=== PATIENT | female | born 1950 | race Caucasian/White ===

== ENCOUNTER → 2017-08-24 | Outpatient (CLI) | payer OTHER, MEDICARE ==
--- NOTE | 2017-08-24 13:09 | RAD ---
HISTORY: Bilateral hip pain Study: Two views of the hips Comparison: None Findings: A single frontal view of the pelvis demonstrates the pelvic ring to be intact. No evidence for acute cortical disruption or dislocation of the hip can be observed. Frog leg views of the hips male to d [facility] evidence for fracture. Degenerative changes of the visualized spine are demonstrated. Mild degenerative changes of the sacroiliac joints, each hip, and pubic symphysis are also noted. Portion s of the pelvis are obscured by overlying bowel content. Postoperative changes of the lumbar sacral s pine and pelvis are noted. A partially visualized stimulator device is seen projecting over the left lower quadrant. Impression: 1. Postoperative and degenerative changes as noted above. Reported By:
--- NOTE | 2017-08-24 13:23 | RAD ---
HISTORY: Knee pain Study: Four views of the right knee Comparison: None Findings: Images demonstrate medial and patellofemoral compartment space narrowing. Spurring of the tibial spin es is noted. Subchondral sclerosis is seen within the tibial plateau. Minimal spurring is noted along the posterior margin of the patella. No evidence of acute displaced fracture or dislocation is ident ified. IMPRESSION: 1. Degenerative changes as noted above. Reported By:
--- NOTE | 2017-08-24 13:23 | RAD ---
HISTORY: Knee pain Study: Four views of the left knee Comparison: None Findings: Images demonstrate medial and patellofemoral compartment space narrowing. Spurring of the tibial spin es is noted. Subchondral sclerosis is seen within the tibial plateau. Minimal spurring is noted along the posterior margin of the patella. No evidence of acute displaced fracture or dislocation is ident ified. IMPRESSION: 1. Degenerative changes as noted above. Reported By:
== END | disposition home or self-care (01) | DRG 556 ==
LOC: RAD 11:09
PROVIDERS: ATTEND Orthopaedic Surgery
DX: M25.551 Pain in right hip (principal); M25.552 Pain in left hip; M17.0 Bilateral primary osteoarthritis of knee; M16.0 Bilateral primary osteoarthritis of hip
CPT/HCPCS: 73521; 73564

== ENCOUNTER 2024-06-05 13:29 | Observation (INO) ==
--- NOTE | 2024-06-05 14:01 | DR.GENAD ---
HPI Time Seen Time Seen by Provider: 06/05/24 13:58 PCP Primary Care Physician: Dr Akbar Complaint/Symptoms Chief Complaint Doctors Comments: Patient complains of constipation for 4 to 5 days she is taken medical magnesia and Dulcolax with no relief. Chief Complaint:: Patient states she has been unable to have a BM in 4-5 days. She states she gave herself an enema yesterday with flatulence and liguid results only. She has pain generalized abdomen COVID-19 Coronavirus risk:travel/contact w/high risk person: No Has patient experienced Coronavirus symptoms: No Source History Provided: Patient Mode of Arrival Mode of Arrival: Wheelchair Timing Onset of Chief Complaint: 05/30/24 PMH PMH Past Medical History: Yes Past Medical History: Arthritis Past Medical History Comment: RA, Sundowners, IBS Past Surgical History: Yes Surgical History: Hysterectomy and Tonsillectomy Past Surgical History Comment: Back surgery with a stimulator Family History History of Family Medical Conditions: Yes Family Medical History: [place], Coronary Artery Disease and Sudden Cardiac Social History Does patient currently use any type of tobacco product: No Have you used tobacco products in the last 12 months: No Type of Tobacco Use: None Does any household member use tobacco: No Alcohol Use: None Do you use any recreational Drugs:: No Lives With: Spouse Lives Where: Home Travel Risk Coronavirus risk:travel/contact w/high risk person: No Has patient experienced Coronavirus symptoms: No Infectious screening In the last 2 months have you had wt loss of >10#?: NO Have you had fever, night sweats or hemotysis?: No Have you traveled outside the country in the last 6 months?: No Isolation: Standard ROS Review of Systems Constitutional: Other (Constipation with right lower quadrant abdominal pain) Eyes: No Symptoms Reported ENTM: No Symptoms Reported Respiratoy: No Symptoms Reported Cardiovascular: No Symptoms Reported Gastrointestinal/Abdominal: Abdominal Pain (rlq abdominal pain) and Constipation Genitourinary: No Symptoms Reported Neurological: No Symptoms Reported Musculoskeletal: No Symptoms Reported Integumentary: No Symptoms Reported Hematologic/Lymphatic: No Symptoms Reported Endocrine: No Symptoms Reported Psychiatric: No Symptoms Reported PE Vital Signs Vitals: Vital Signs Temperature 98 F Pulse Rate 63 Respiratory Rate 16 Blood Pressure 118/56 O2 Sat by Pulse Oximetry 94 General Limitations: No Limitations General Appearance: In Distress (mild distress) Head Head Exam: Normal Inspection, Atraumatic and Normocephalic Eyes Eye exam: Normal Appearance, PERRL and EOMI ENT ENT Exam: Normal Exam, Normal Oropharynx and Normal External Ear Exam External Ear Exam: Normal External Inspection TM/Canal Exam: Bilateral: Normal Nose Exam: Normal Nose Exam Mouth Exam: Normal Inspection Neck Neck Exam: Normal Inspection, Full ROM and Trachea Midline Chest Chest Inspection: Normal Inspection and Symmetric Chest Wall Rise Respiratory Respiratory Exam: Normal Lung Sounds Bilat Respiratory Exam: Bilateral: Clear to Auscultation Cardiovascular Cardiovascular Exam: Regular Rate and Normal Rhythm Abdominal Exam Abdominal Exam: Normal Inspection, Tenderness (rlq) and Hyperactive Bowel Sounds Abdominal Tenderness: RUQ Extremities Extremities Exam: Normal Inspection Back Back Exam: Normal Inspection and Full ROM Neurologic Neurological Exam: Alert, Oriented X3 and CN II-XII Intact Psychiatric Psychiatric Exam: Normal Affect MDM Differential Diagnosis Differential Diagnosis: uti,constipation ,bowel obstruction COURSE Treatment Treatment: Patient may relatively stable during ER visit. We did do some labs on this patient and they were all normal the metabolic panel was normal CBC was normal he was only 4.[address] scan the patient was told of the mid to put in hospital and she was agreeable to the admission. Abdomen pelvis that showed pneumatosis intestinalis in the ascending colon. There was tiny collections of extra luminal air posterior to the ascending colon and along the hepatic flexure, there was estelita hepatis, anterior liver. Device was by the radiologist that this patient required an emergent consultation with the surgeon. We did talk contact Dr. Nichols at 1630 and he stated he will be over to evaluate the patient he did evaluate the patient at 1715. Dr. Tsang stated the patient need to be put in for observation and given IV fluids at 125 cc an hour to start Flagyl 500 mg IV every 8 hours and to put her on a clear liquid diet and given medications for pain. He will do further evaluation evaluation of the patient in the a.m. he also wanted the patient to get a KUB in the a.m. ROR Labs Reviewed Laboratory Results Reviewed?: Yes 06/05/24 14:36 06/05/24 14:36 Laboratory: WBC 4.4 X10^3/uL (3.6-10.0) 06/05/24 14:36 RBC 4.31 X10^6/uL (3.5-5.4) 06/05/24 14:36 Hgb 12.5 g/dL (12.0-16.0) 06/05/24 14:36 Hct 37.5 % (36.0-47.0) 06/05/24 14:36 MCV 87.1 fL (80.0-100.0) 06/05/24 14:36 MCH 29.1 pg (27.0-34.0) 06/05/24 14:36 MCHC 33.4 g/dL (33.0-35.0) 06/05/24 14:36 RDW 15.2 % (11.6-16.5) 06/05/24 14:36 Plt Count 205 X10^3/uL (150.0-450.0) 06/05/24 14:36 MPV 7.5 fL (7.4-11.0) 06/05/24 14:36 Neut % (Auto) 58.5 % (42.0-75.0) 06/05/24 14:36 Lymph % (Auto) 31.2 % (21.0-51.0) 06/05/24 14:36 Maury % (Auto) 9.5 % (0.0-13.0) 06/05/24 14:36 Eos % (Auto) 0.4 % (0.9-2.9) L 06/05/24 14:36 Baso % (Auto) 0.4 % (0.2-1.0) 06/05/24 14:36 Neut # (Auto) 2.6 x10^3/uL (2.2-4.8) 06/05/24 14:36 Lymph # (Auto) 1.4 X10^3/uL (1.3-2.9) 06/05/24 14:36 Maury # (Auto) 0.4 x10^3/uL (0.3-0.8) 06/05/24 14:36 Eos # (Auto) 0.0 x10^3/uL (0.0-0.2) 06/05/24 14:36 Baso # (Auto) 0.0 X10^3/uL (0.0-0.1) 06/05/24 14:36 Absolute Nucleated RBC 0.0 /100WBC 06/05/24 14:36 Sodium 140 mmol/L (136-145) 06/05/24 14:36 Corrected Sodium TNP 06/05/24 14:36 Potassium 3.9 mmol/L (3.5-5.1) 06/05/24 14:36 Chloride 103 mmol/L (98-107) 06/05/24 14:36 Carbon Dioxide 31.5 mmol/L (21-32) 06/05/24 14:36 BUN 9 mg/dL (7-18) 06/05/24 14:36 Creatinine 0.82 mg/dL (0.55-1.02) 06/05/24 14:36 Est GFR (MDRD) Af Amer > 60 (>60) 06/05/24 14:36 Est GFR (MDRD) Non-Af > 60 (>60) 06/05/24 14:36 Glucose 83 mg/dL (65-99) 06/05/24 14:36 Calcium 8.3 mg/dL (8.5-10.1) L 06/05/24 14:36 Corrected Calcium TNP 06/05/24 14:36 Total Bilirubin 0.20 mg/dL (0.2-1.0) 06/05/24 14:36 AST 21 Units/L (15-37) 06/05/24 14:36 ALT 14 Units/L (12-78) 06/05/24 14:36 Alkaline Phosphatase 104 Units/L (46-116) 06/05/24 14:36 Total Protein 7.7 g/dL (6.4-8.2) 06/05/24 14:36 Albumin 3.4 g/dL (3.4-5.0) 06/05/24 14:36 Globulin 4.3 g/dL (2.5-4.5) 06/05/24 14:36 Albumin/Globulin Ratio 0.8 Ratio (1.1-2.1) L 06/05/24 14:36 Specimen Type Clean catch urine 06/05/24 14:30 Urine Color Pale yellow (YELLOW) 06/05/24 14:30 Urine Appearance Slightly hazy (CLEAR) 06/05/24 14:30 Urine pH 7.0 (5.0 - 8.0) 06/05/24 14:30 Ur Specific Denair 1.010 (1.000-1.030) 06/05/24 14:30 Urine Protein 1+ (NEGATIVE) 06/05/24 14:30 Urine Glucose (UA) Negative (NEGATIVE) 06/05/24 14:30 Urine Ketones Negative (NEGATIVE) 06/05/24 14:30 Urine Blood 4+ (NEGATIVE) 06/05/24 14:30 Urine Nitrite Negative (NEGATIVE) 06/05/24 14:30 Urine Bilirubin Negative (NEGATIVE) 06/05/24 14:30 Urine Urobilinogen Normal (NORMAL) 06/05/24 14:30 Ur Leukocyte Esterase Negative (NEGATIVE) 06/05/24 14:30 Urine RBC 5-10 /HPF (0-3) A 06/05/24 14:30 Urine WBC None seen /HPF (0-5) 06/05/24 14:30 Ur Squamous Epith Cells Moderate /HPF (NEGATIVE) 06/05/24 14:30 Amorphous Sediment 1+ /HPF (NEGATIVE) 06/05/24 14:30 Urine Bacteria 1+ /HPF (NEGATIVE) 06/05/24 14:30 Ur Culture Indicated? No/not indicated 06/05/24 14:30 Opioid Opioid Risk Tool Age (Omar box if 16-45): No History of Preadolescent Sexual Abuse: No Total: 0 Total Score Risk Category: Low Risk Copyright: Tom MOSES predicting aberrant behaviors Discharge Plan Diagnosis Discharge Problem: Pneumatosis intestinalis, Constipation Discharge Plan Patient Disposition: 09 ADMITTED INPATIENT Condition: Stable Prescriptions: No Action furosemide 40 mg tablet 40 mg PO QDAY alprazolam 1 mg tablet PO potassium chloride 10 mEq tablet extended release 10 meq PO QDAY dicyclomine 20 mg tablet 20 mg PO QID pantoprazole 40 mg tablet,delayed release (DR/EC) 40 mg PO QDAY cyanocobalamin (vitamin B-12) 1,000 mcg/mL solution IM Health Concerns: Post Hospitalization: new medications and changes needed to prevent readmission or further decline. Pt educated and given instructions on all concerns. Plan of Treatment: Continue with present treatment and follow up plan. Pt is to keep follow up appointment as instructed and take medications as ordered. Orders to Discharge Patient Discharge Orders: Transfer (Routine); Ordered 06/05/24 Ordered By: Marty Suarez Follow ups/Referrals Follow ups/Referrals: ISRAEL AKBAR [Primary Care Provider] - 3 days Instructions Stand Alone Forms: Find Help Web Site, Post Hospital Follow Up Care
[2024-06-05 14:53] LABS: BASOPHILS % (AUTO) 0.4 % (0.2-1.0); EOSINOPHILS % (AUTO) 0.4 % (0.9-2.9); HEMATOCRIT 37.5 % (36.0-47.0); HEMOGLOBIN 12.5 g/dL (12.0-16.0); LYMPHOCYTES # (AUTO) 1.4 X10^3/uL (1.3-2.9); LYMPHOCYTES % (AUTO) 31.2 % (21.0-51.0); MEAN CORPUSCULAR HEMOGLOBIN 29.1 pg (27.0-34.0); MEAN CORPUSCULAR HGB CONC 33.4 g/dL (33.0-35.0); MEAN CORPUSCULAR VOLUME 87.1 fL (80.0-100.0); MEAN PLATELET VOLUME 7.5 fL (7.4-11.0); MONOCYTES # (AUTO) 0.4 x10^3/uL (0.3-0.8); MONOCYTES % (AUTO) 9.5 % (0.0-13.0); NEUTROPHILS # (AUTO) 2.6 x10^3/uL (2.2-4.8); NEUTROPHILS % (AUTO) 58.5 % (42.0-75.0); PLATELET COUNT 205 X10^3/uL (150.0-450.0); RED BLOOD COUNT 4.31 X10^6/uL (3.5-5.4); RED CELL DISTRIBUTION WIDTH 15.2 % (11.6-16.5); WHITE BLOOD COUNT 4.4 X10^3/uL (3.6-10.0)
[2024-06-05 14:57] LABS: ALANINE AMINOTRANSFERASE 14 Units/L (12-78); ALBUMIN 3.4 g/dL (3.4-5.0); ALKALINE PHOSPHATASE 104 Units/L (46-116); ASPARTATE AMINO TRANSFERASE 21 Units/L (15-37); BLOOD UREA NITROGEN 9 mg/dL (7-18); CALCIUM 8.3 mg/dL (8.5-10.1); CARBON DIOXIDE 31.5 mmol/L (21-32); CHLORIDE 103 mmol/L (98-107); CREATININE 0.82 mg/dL (0.55-1.02); GLUCOSE 83 mg/dL (65-99); POTASSIUM 3.9 mmol/L (3.5-5.1); SODIUM 140 mmol/L (136-145); TOTAL PROTEIN 7.7 g/dL (6.4-8.2); eGFR NON BLACK RACES > 60 (>60)
[2024-06-05 15:16] LABS: BILIRUBIN,URINE NEGATIVE (NEGATIVE); BLOOD/HEMOGLOBIN,URINE 4+ (NEGATIVE); GLUCOSE, URINE NEGATIVE (NEGATIVE); KETONES,URINE NEGATIVE (NEGATIVE); LEUKOCYTE ESTERASE ,URINE NEGATIVE (NEGATIVE); NITRITES,URINE NEGATIVE (NEGATIVE); PROTEIN,URINE 1+ (NEGATIVE); UROBILINOGEN,URINE NORMAL (NORMAL)
[2024-06-05 15:17] LABS: APPEARANCE,URINE SLIGHTLY HAZY (CLEAR); COLOR,URINE PALE YELLOW (YELLOW)
[2024-06-05 15:30] LABS: BACTERIA,URINE 1+ /HPF (NEGATIVE); SQUAMOUS EPITHELIAL CELL,UR MODERATE /HPF (NEGATIVE)
--- NOTE | 2024-06-05 16:19 | CT ---
EXAMINATION: ABDOMEN/PELVIS W/O CON HISTORY: Patient states she has been unable to have a BM in 4-5 days. She states she gave herself an enema yes terday with flatulence and liguid results only. She has pain generalized abdomen; COMPARISON: None. TECHNIQUE: Contiguous noncontrast axial CT images of the abdomen and pelvis. Images reviewed in the axial imagi ng plane with reformatted sagittal and coronal images.The above CT scan was done with automated expos ure control and the mA and kV was adjusted to obtain quality images according to patient size. FINDINGS: Details of the organs are limited since intravenous and oral contrast were not used. Liver measures 15 by 12.4 by 12 cm. The gallbladder is surgically absent. There may be slightly pro minent biliary ducts in the left hepatic lobe. Mild diffuse fatty atrophy of the pancreas. No pancreatic duct dilatation. Spleen, adrenal glands appear intact. Kidneys normal size and position. No hydronephrosis. 0.9 cm cyst central density 5 Hounsfield units located anteromedial midpole left kidney. Scattered arterial vascular calcifications aorta and branch vessels. Details of the GI tract are limited since oral contrast was not used. There is moderate gaseous dist ention of the transverse colon. Liquid stool within the ascending colon. Pneumatosis intestinalis/a ir within the bowel tinajero of the ascending colon with tiny collections of extraluminal air posterior to the ascending colon and along the hepatic flexure, estelita hepatis, anterior liver. Proximal and di stal small bowel are normal caliber. Fusion hardware hardware visualized lower thoracic spine, lumbar spine, sacrum/iliac bones. IMPRESSION: Pneumatosis intestinalis ascending colon, tiny collections of extraluminal air posterior to the ascen ding colon and along the hepatic flexure, estelita hepatis, anterior liver. Recommend emergent consulta tion with a surgeon. Other incidental findings as discussed above. THIS IS AN ELECTRONICALLY VERIFIED FINAL REPORT 06/05/2024 4:15 PM - Electronically signed by Rhonda Bonds MD
[2024-06-05] MEDS ORDERED: NS 1,000 ML IV 1,000 ML ONE (18:46)
[2024-06-05] MEDS ORDERED: FLAGYL IV PREMIX 500 MG BAG 500 MG/100 ML BAG IV ONE (18:46)
[2024-06-05] MEDS: NS 1,000 ML IV 1,000 ML IV SCH (18:51)
[2024-06-05] MEDS: FLAGYL IV PREMIX 500 MG BAG 500 MG/100 ML BAG IV SCH (18:51)
[2024-06-05] MEDS ORDERED: RESTORIL CAP 15 MG PO PRN (21:57)
[2024-06-05] MEDS: MORPHINE SULFATE INJ 2 MG INJ IVP PRN (22:04)
[2024-06-05 23:12] VITALS: BMI 22.2
[2024-06-06 06:00] LABS: BASOPHILS % (AUTO) 0.3 % (0.2-1.0); EOSINOPHILS % (AUTO) 0.2 % (0.9-2.9); HEMOGLOBIN 11.6 g/dL (12.0-16.0); LYMPHOCYTES # (AUTO) 0.8 X10^3/uL (1.3-2.9); LYMPHOCYTES % (AUTO) 25.9 % (21.0-51.0); MEAN CORPUSCULAR HEMOGLOBIN 28.8 pg (27.0-34.0); MEAN CORPUSCULAR HGB CONC 33.1 g/dL (33.0-35.0); MEAN CORPUSCULAR VOLUME 86.9 fL (80.0-100.0); MEAN PLATELET VOLUME 7.7 fL (7.4-11.0); MONOCYTES # (AUTO) 0.3 x10^3/uL (0.3-0.8); MONOCYTES % (AUTO) 11.5 % (0.0-13.0); NEUTROPHILS # (AUTO) 1.8 x10^3/uL (2.2-4.8); NEUTROPHILS % (AUTO) 62.1 % (42.0-75.0); PLATELET COUNT 200 X10^3/uL (150.0-450.0); RED BLOOD COUNT 4.03 X10^6/uL (3.5-5.4); RED CELL DISTRIBUTION WIDTH 15.2 % (11.6-16.5)
[2024-06-06 06:08] LABS: ALANINE AMINOTRANSFERASE 12 Units/L (12-78); ALBUMIN 2.8 g/dL (3.4-5.0); ALKALINE PHOSPHATASE 96 Units/L (46-116); ASPARTATE AMINO TRANSFERASE 16 Units/L (15-37); BLOOD UREA NITROGEN 6 mg/dL (7-18); CALCIUM 8.2 mg/dL (8.5-10.1); CARBON DIOXIDE 31.2 mmol/L (21-32); CHLORIDE 107 mmol/L (98-107); COR CA(FOR HYPOALB) 9.2 mg/dL (8.5-10.1); CREATININE 0.71 mg/dL (0.55-1.02); GLUCOSE 85 mg/dL (65-99); POTASSIUM 3.7 mmol/L (3.5-5.1); SODIUM 145 mmol/L (136-145); TOTAL PROTEIN 6.7 g/dL (6.4-8.2); eGFR NON BLACK RACES > 60 (>60)
--- NOTE | 2024-06-06 07:41 | RAD ---
EXAM: KUB HISTORY: Follow-up pneumatosis intestinalis COMPARISON: CT abdomen pelvis without contrast 06/05/2023 FINDINGS: There is a battery pack overlying the left midabdomen. Extensive postsurgical changes are present in the lumbosacral spine with rods and pedicular screws present. The abdominal gas pattern is nonspe cific and nonobstructive. Very subtle gas densities in the right lower and right midabdomen in the a myesha of the colon likely represent pneumatosis intestinalis not nearly as well demonstrated as on the recent CT. Pneumoperitoneum not excluded on this supine film. No abnormal masses or abnormal calcif ications identified. IMPRESSION: Small amount of pneumatosis intestinalis noted in the area of the proximal ascending colon THIS IS AN ELECTRONICALLY VERIFIED FINAL REPORT 06/06/2024 7:38 AM - Electronically signed by Ki Bucio MD
[2024-06-06] MEDS: PROTONIX TAB 40 MG PO SCH (09:36)
[2024-06-06] MEDS: KLOR-CON 10 MEQ TAB PO SCH (09:36)
[2024-06-06] MEDS: LASIX PO SCH (09:36)
[2024-06-06] MEDS ORDERED: NORCO 5/325 MG TAB PO PRN (09:57)
[2024-06-06] MEDS: LOVENOX INJ 40 MG SYR SC SCH (10:23)
--- NOTE | 2024-06-06 11:12 | DR.PROGNOT ---
HOSPITAL PROGRESS NOTE Progress Note for Day of: Progress Note Date: 06/06/24 Chief Complaint Chief Complaint: Feeling better today with less abdominal pain and less distention. No nausea or vomiting, no bowel movements yet. KUB still showing small amount of pneumatosis intestinalis around the hepatic flexure. WBC is a 3, hemoglobin 11.6, platelet count 200,000, normal electrolytes and liver function test as well as BUN and creatinine. Patient is afebrile, she has soft abdomen with only mild distention, bowel sounds were hypoactive. Past Medical Family Social History Past Med/Fam/Surg Hx: No changes since H&P Allergies: Allergies Sulfa (Sulfonamide Antibiotics) [SULFA] Allergy (Verified 06/05/24 18:52) Vital Signs Vital Signs: Vital Signs Temperature 97.5 F Temperature 97.6 F Pulse Rate [Right Brachial] 58 Pulse Rate [Right Brachial] 69 Respiratory Rate 20 Respiratory Rate 18 Respiratory Rate 19 Blood Pressure [Right Arm] 152/66 Blood Pressure [Right Arm] 143/66 O2 Sat by Pulse Oximetry 96 O2 Sat by Pulse Oximetry 98 Physical Exam Oriented: Normal Eyes: Normal Ear: Normal Nose: Normal Throat: Normal Respiratory: Normal Cardiovascular: Normal GI:Auscultation: Decreased GI:Palpation: Other (Mild diffuse abdominal tenderness, no rebound or rigidity.) Speech Pattern: Clear and Appropriate Laboratory and Diagnostics 06/06/24 05:15 06/06/24 05:15 Labs: Laboratory WBC 3.0 X10^3/uL (3.6-10.0) L 06/06/24 05:15 RBC 4.03 X10^6/uL (3.5-5.4) 06/06/24 05:15 Hgb 11.6 g/dL (12.0-16.0) L 06/06/24 05:15 Hct 35.0 % (36.0-47.0) L 06/06/24 05:15 MCV 86.9 fL (80.0-100.0) 06/06/24 05:15 MCH 28.8 pg (27.0-34.0) 06/06/24 05:15 MCHC 33.1 g/dL (33.0-35.0) 06/06/24 05:15 RDW 15.2 % (11.6-16.5) 06/06/24 05:15 Plt Count 200 X10^3/uL (150.0-450.0) 06/06/24 05:15 MPV 7.7 fL (7.4-11.0) 06/06/24 05:15 Neut % (Auto) 62.1 % (42.0-75.0) 06/06/24 05:15 Lymph % (Auto) 25.9 % (21.0-51.0) 06/06/24 05:15 Hood % (Auto) 11.5 % (0.0-13.0) 06/06/24 05:15 Eos % (Auto) 0.2 % (0.9-2.9) L 06/06/24 05:15 Baso % (Auto) 0.3 % (0.2-1.0) 06/06/24 05:15 Neut # (Auto) 1.8 x10^3/uL (2.2-4.8) L 06/06/24 05:15 Lymph # (Auto) 0.8 X10^3/uL (1.3-2.9) L 06/06/24 05:15 Hood # (Auto) 0.3 x10^3/uL (0.3-0.8) 06/06/24 05:15 Eos # (Auto) 0.0 x10^3/uL (0.0-0.2) 06/06/24 05:15 Baso # (Auto) 0.0 X10^3/uL (0.0-0.1) 06/06/24 05:15 Absolute Nucleated RBC 0.1 /100WBC 06/06/24 05:15 Sodium 145 mmol/L (136-145) 06/06/24 05:15 Corrected Sodium TNP 06/06/24 05:15 Potassium 3.7 mmol/L (3.5-5.1) 06/06/24 05:15 Chloride 107 mmol/L (98-107) 06/06/24 05:15 Carbon Dioxide 31.2 mmol/L (21-32) 06/06/24 05:15 BUN 6 mg/dL (7-18) L 06/06/24 05:15 Creatinine 0.71 mg/dL (0.55-1.02) 06/06/24 05:15 Est GFR (MDRD) Af Amer > 60 (>60) 06/06/24 05:15 Est GFR (MDRD) Non-Af > 60 (>60) 06/06/24 05:15 Glucose 85 mg/dL (65-99) 06/06/24 05:15 Calcium 8.2 mg/dL (8.5-10.1) L 06/06/24 05:15 Corrected Calcium 9.2 mg/dL (8.5-10.1) 06/06/24 05:15 Total Bilirubin 0.30 mg/dL (0.2-1.0) 06/06/24 05:15 AST 16 Units/L (15-37) 06/06/24 05:15 ALT 12 Units/L (12-78) 06/06/24 05:15 Alkaline Phosphatase 96 Units/L (46-116) 06/06/24 05:15 Total Protein 6.7 g/dL (6.4-8.2) 06/06/24 05:15 Albumin 2.8 g/dL (3.4-5.0) L 06/06/24 05:15 Globulin 3.9 g/dL (2.5-4.5) 06/06/24 05:15 Albumin/Globulin Ratio 0.7 Ratio (1.1-2.1) L 06/06/24 05:15 Specimen Type Clean catch urine 06/05/24 14:30 Urine Color Pale yellow (YELLOW) 06/05/24 14:30 Urine Appearance Slightly hazy (CLEAR) 06/05/24 14:30 Urine pH 7.0 (5.0 - 8.0) 06/05/24 14:30 Ur Specific Ethel 1.010 (1.000-1.030) 06/05/24 14:30 Urine Protein 1+ (NEGATIVE) 06/05/24 14:30 Urine Glucose (UA) Negative (NEGATIVE) 06/05/24 14:30 Urine Ketones Negative (NEGATIVE) 06/05/24 14:30 Urine Blood 4+ (NEGATIVE) 06/05/24 14:30 Urine Nitrite Negative (NEGATIVE) 06/05/24 14:30 Urine Bilirubin Negative (NEGATIVE) 06/05/24 14:30 Urine Urobilinogen Normal (NORMAL) 06/05/24 14:30 Ur Leukocyte Esterase Negative (NEGATIVE) 06/05/24 14:30 Urine RBC 5-10 /HPF (0-3) A 06/05/24 14:30 Urine WBC None seen /HPF (0-5) 06/05/24 14:30 Ur Squamous Epith Cells Moderate /HPF (NEGATIVE) 06/05/24 14:30 Amorphous Sediment 1+ /HPF (NEGATIVE) 06/05/24 14:30 Urine Bacteria 1+ /HPF (NEGATIVE) 06/05/24 14:30 Ur Culture Indicated? No/not indicated 06/05/24 14:30 Assessment and Plan 1: Abdominal pain with constipation. 2: Pneumatosis intestinalis. Seems to be less prominent today with benign physical examination. To advance diet, add Lovenox to her medications. Repeat KUB in the morning and possible discharge If tolerating diet and having bowel movement. 3: Confinement to bed with severe rheumatoid arthritis and muscle wasting. Same medications and pain control. Problem Patient Problems: Patient Problems Pneumatosis intestinalis (Acute) K63.89 Constipation (Acute) K59.00
[2024-06-06] MEDS: MAALOX or MYLANTA PO PRN (16:28)
[2024-06-06] MEDS: MORPHINE SULFATE INJ 2 MG INJ IVP ONE (16:29)
[2024-06-06] MEDS: ATIVAN INJ 2 MG VIAL IVP PRN (16:29)
[2024-06-06] MEDS: MUCINEX EXPECTORANT PO SCH (20:29)
--- NOTE | 2024-06-07 08:47 | RAD ---
EXAM:KUBHISTORY:Pneumatosis intestinalis follow-upCOMPARISON:KUB 06/06/2023, CT abdomen pelvis 06/05/2023FINDINGS:Battery pack overlies the left lower abdomen. Extensive postsurgical changes in the lumbosacral spine with hardware present. The abdominal gas pattern is nonspecific and nonobstructive. There still appears to be a small amount of pneumatosis present in the ascending colon not significantly changed from the prior examination. No abnormal masses or abnormal calcifications are identified. Regional skeleton is intact.IMPRESSION:No significant change from the prior examinationTHIS IS AN ELECTRONICALLY VERIFIED FINAL REPORT06/07/2024 8:29 AM - Electronically signed by Ki Bucio MD
[2024-06-07] MEDS: ZOFRAN INJ 4 MG VIAL IVP PRN (09:03)
[2024-06-07 10:53] VITALS: BP 153/92; PULSE 112; RESP 20; TEMP 97.4; O2SAT 96
== END 2024-06-07 10:45 | disposition home or self-care (01) ==
LOC: ER 13:29 → MED/SURG 13:29
PROVIDERS: ADMIT Surgery; ATTEND Surgery
DX: F32.89 Other specified depressive episodes; M62.58 Muscle wasting and atrophy, not elsewhere classified, other site; R10.84 Generalized abdominal pain; K63.89 Other specified diseases of intestine; Z79.899 Other long term (current) drug therapy; F41.8 Other specified anxiety disorders; M54.89 Other dorsalgia; M06.8A Other specified rheumatoid arthritis, other specified site; K59.09 Other constipation; Z65.8 Other specified problems related to psychosocial circumstances

== ENCOUNTER 2024-07-01 13:20 | Observation (INO) ==
[2024-07-01] MEDS: TORADOL 15 MG VIAL IVP ONE (13:49)
[2024-07-01 14:00] LABS: LYMPHOCYTES # (AUTO) 1.1 X10^3/uL (1.3-2.9)
[2024-07-01 14:08] LABS: ALANINE AMINOTRANSFERASE 12 Units/L (12-78); ALBUMIN 3.5 g/dL (3.4-5.0); ALKALINE PHOSPHATASE 105 Units/L (46-116); AMYLASE 43 Units/L (25-115); ASPARTATE AMINO TRANSFERASE 23 Units/L (15-37); BLOOD UREA NITROGEN 7 mg/dL (7-18); CALCIUM 8.7 mg/dL (8.5-10.1); CARBON DIOXIDE 33.9 mmol/L (21-32); CHLORIDE 97 mmol/L (98-107); CREATININE 0.76 mg/dL (0.55-1.02); GLUCOSE 106 mg/dL (65-99); LIPASE 17 Units/L (16-77); POTASSIUM 3.5 mmol/L (3.5-5.1); SODIUM 139 mmol/L (136-145); TOTAL PROTEIN 7.9 g/dL (6.4-8.2); eGFR NON BLACK RACES > 60 (>60)
[2024-07-01 14:09] LABS: MONOCYTES # (AUTO) 0.4 x10^3/uL (0.3-0.8)
[2024-07-01 14:19] LABS: BASOPHILS % (AUTO) 1.2 % (0.2-1.0); EOSINOPHILS % (AUTO) 0.6 % (0.9-2.9); HEMATOCRIT 38.7 % (36.0-47.0); HEMOGLOBIN 12.9 g/dL (12.0-16.0); LYMPHOCYTES % (AUTO) 31.6 % (21.0-51.0); MEAN CORPUSCULAR HEMOGLOBIN 29.2 pg (27.0-34.0); MEAN CORPUSCULAR HGB CONC 33.4 g/dL (33.0-35.0); MEAN CORPUSCULAR VOLUME 87.6 fL (80.0-100.0); MEAN PLATELET VOLUME 7.9 fL (7.4-11.0); MONOCYTES % (AUTO) 10.3 % (0.0-13.0); NEUTROPHILS % (AUTO) 56.3 % (42.0-75.0); PLATELET COUNT 234 X10^3/uL (150.0-450.0); RED BLOOD COUNT 4.41 X10^6/uL (3.5-5.4); RED CELL DISTRIBUTION WIDTH 15.3 % (11.6-16.5); WHITE BLOOD COUNT 3.6 X10^3/uL (3.6-10.0)
[2024-07-01 14:34] LABS: BILIRUBIN,URINE NEGATIVE (NEGATIVE); BLOOD/HEMOGLOBIN,URINE 2+ (NEGATIVE); GLUCOSE, URINE NEGATIVE (NEGATIVE); KETONES,URINE NEGATIVE (NEGATIVE); LEUKOCYTE ESTERASE ,URINE NEGATIVE (NEGATIVE); NITRITES,URINE NEGATIVE (NEGATIVE); PROTEIN,URINE NEGATIVE (NEGATIVE); UROBILINOGEN,URINE NORMAL (NORMAL)
[2024-07-01 14:35] LABS: APPEARANCE,URINE CLEAR (CLEAR); COLOR,URINE PALE YELLOW (YELLOW)
[2024-07-01 14:42] LABS: BACTERIA,URINE TRACE /HPF (NEGATIVE); RBC,URINE 20-30 /HPF (0-3); SQUAMOUS EPITHELIAL CELL,UR RARE /HPF (NEGATIVE)
--- NOTE | 2024-07-01 16:55 | CT ---
CT ABDOMEN AND PELVIS WITHOUT CONTRASTHISTORY:Chronic constipation with abdominal painCOMPARISON:NoneTECHNIQUE:Axial images were obtained of the abdomen and pelvis without IV contrast. Sagittal and coronal reformatted images were provided. All images were reviewed in a variety of windows and levels.RADIATION REDUCTION TECHNIQUE: Automated exposure control, adjustment of the mA or kV according to patient size, or iterative reconstruction techniques were used.FINDINGS:Please note that lack of IV contrast does limit evaluation of the soft tissues and vascular detail. This exam is limited due to patient positioning.The visualized lower lung zones demonstrates diffuse bronchiectasis with scar-like changes. There is an incidental finding of a 17 x 14 mm noncalcified solitary pulmonary nodule located in the posterior aspect of the right lower lobe which shows spiculated borders and is worrisome for malignancy. There is a circumscribed partially calcified solitary pulmonary nodule located in the posterior left lower lobe measuring 10 x 10 mm. Emphysematous changes are noted. The heart size is within normal limits. There is no evidence of a pericardial effusion.The liver, spleen, pancreas, adrenal glands, and kidneys are grossly unremarkable. Status post cholecystectomy. Status post hysterectomy.There is no evidence of stones or signs of obstructive uropathy.The stomach is filled with air and fluid and grossly unremarkable. Prominent fluid-filled loops of small bowel are seen. Massively distended colon is seen filled with fluid and severe flatulence. These imaging findings are worrisome for a partial small bowel obstruction but a transition point is not clearly identified given the dilated loops of small bowel. Severe gastroenteritis with flatulence is also suggested given the amount of fluid and flatulence located in the colon.There is no evidence of retroperitoneal or mesenteric lymphadenopathy.The visualized bones demonstrate degenerative changes. Geller rods are in place. This is most likely for treatment of scoliosis. The patient is status post kyphoplasty at the T9 vertebral body although this is not definitively clear on this examination. There is no evidence of cement extrusion. A neurostimulator is also in position.IMPRESSION:1. THE VISUALIZED LOWER LUNG ZONES DEMONSTRATES DIFFUSE BRONCHIECTASIS WITH SCAR-LIKE CHANGES. THERE IS AN INCIDENTAL FINDING OF A 17 X 14 MM NONCALCIFIED SOLITARY PULMONARY NODULE LOCATED IN THE POSTERIOR ASPECT OF THE RIGHT LOWER LOBE WHICH SHOWS SPICULATED BORDERS AND IS WORRISOME FOR MALIGNANCY.2. THERE IS A CIRCUMSCRIBED PARTIALLY CALCIFIED SOLITARY PULMONARY NODULE LOCATED IN THE POSTERIOR LEFT LOWER LOBE MEASURING 10 X 10 MM. EMPHYSEMATOUS CHANGES ARE NOTED.3. PROMINENT FLUID-FILLED LOOPS OF SMALL BOWEL ARE SEEN. THIS IS WORRISOME FOR A PARTIAL SMALL BOWEL OBSTRUCTION ALTHOUGH A DEFINITIVE TRANSITION POINT IS NOT CLEARLY IDENTIFIED. DIFFERENTIAL DIAGNOSIS SHOULD INCLUDE, BUT IS NOT LIMITED TO SMALL-BOWEL ENTERITIS.4. SEVERE GASTROENTERITIS WITH FLATULENCE IS ALSO SUGGESTED GIVEN THE AMOUNT OF FLUID AND FLATULENCE LOCATED IN THE COLON.5. GELLER RODS ARE IN PLACE. THIS IS MOST LIKELY FOR TREATMENT OF SCOLIOSIS. THE PATIENT IS STATUS POST KYPHOPLASTY AT THE T9 VERTEBRAL BODY ALTHOUGH THIS IS NOT DEFINITIVELY CLEAR ON THIS EXAMINATION. THERE IS NO EVIDENCE OF CEMENT EXTRUSION. A NEUROSTIMULATOR IS ALSO IN POSITION.THIS IS AN ELECTRONICALLY VERIFIED FINAL REPORT07/01/2024 4:52 PM - Electronically signed by Jayson Dye MD
--- NOTE | 2024-07-01 17:43 | DR.EXTPAIN ---
HPI Time seen Time Seen by Provider: 07/01/24 13:36 PCP Primary Care Physician: Dr. Prince HPI Comment HPI Comment: Patient with a history of chronic constipation and opioid use for severe arthritis. Patient has been constipated for the past 2 days with worsening bloating and abdominal discomfort. At this time she denies having any nausea but states she has been nauseated when she tries to eat. Denies vomiting altogether. Denies fever. Patient was recently seen and found to have pneumatosis intestinalis. Patient states that what had improved and has scheduled colonoscopy with Dr. Garcia on . Complaint/Symptoms Chief Complaint:: Pt c/o chronic constipation and generalized abdominal pain that has been ongoing for several months. Pt states that for the past two days the pt has had worsening generalized abdominal pain and bloating. Pt states that despite taking her laxatives she hasn't had a bowel movement or been able to pass gas in the past two days. Pt does have nausea but denies vomiting. Denies fever. Self Treatment fo Chief Complaint: Pt has taken Dulcolax, Milk of Magnesia, Gas- X, and Colace this morning with no bowel movement. Pt has also taken Methadone 5mg and Oxycodone 10/325 this morning with no improvement of pain. COVID-19 Coronavirus risk:travel/contact w/high risk person: No Has patient experienced Coronavirus symptoms: No Source History Provided: Patient Mode of arrival Mode of Arrival: Ambulatory Timing Onset of Chief Complaint: 06/30/24 PMH PMH Past Medical History: Yes Past Medical History: Anxiety, Arthritis and Depression Past Medical History Comment: chronic constipation, chronic back pain, rheumatoid arthritis Past Surgical History: Yes Surgical History: Hysterectomy Past Surgical History Comment: back surgery Family History History of Family Medical Conditions: Yes Family Medical History: Cancer Social History Does patient currently use any type of tobacco product: No Have you used tobacco products in the last 12 months: No Type of Tobacco Use: None Does any household member use tobacco: No Alcohol Use: None Do you use any recreational Drugs:: No Lives With: Spouse Lives Where: Home Travel Risk Coronavirus risk:travel/contact w/high risk person: No Has patient experienced Coronavirus symptoms: No Infectious screening In the last 2 months have you had wt loss of >10#?: NO Have you had fever, night sweats or hemotysis?: No Have you traveled outside the country in the last 6 months?: No Isolation: Standard ROS Review of Systems Constitutional: No Symptoms Reported Eyes: No Symptoms Reported ENTM: No Symptoms Reported Respiratoy: No Symptoms Reported Cardiovascular: No Symptoms Reported Gastrointestinal/Abdominal: Abdominal Pain, Constipation, Nausea and Food Intolerance; negative Diarrhea or Vomiting Genitourinary: No Symptoms Reported Neurological: No Symptoms Reported Musculoskeletal: No Symptoms Reported Integumentary: No Symptoms Reported Hematologic/Lymphatic: No Symptoms Reported Endocrine: No Symptoms Reported Psychiatric: No Symptoms Reported All Other Systems: Reviewed and Negative PE Vital Signs Vitals: Vital Signs Temperature 97.7 F Temperature 97.5 F Pulse Rate 64 Pulse Rate 59 Pulse Rate 67 Pulse Rate 66 Pulse Rate 63 Pulse Rate 63 Pulse Rate 65 Pulse Rate 63 Pulse Rate 61 Pulse Rate 63 Pulse Rate 67 Pulse Rate 64 Pulse Rate 65 Pulse Rate 73 Pulse Rate 81 Pulse Rate 76 Respiratory Rate 20 Respiratory Rate 20 Blood Pressure 151/60 Blood Pressure 148/67 Blood Pressure 132/63 Blood Pressure 143/64 Blood Pressure 130/59 Blood Pressure 140/65 Blood Pressure 151/60 Blood Pressure 153/70 Blood Pressure 152/70 O2 Sat by Pulse Oximetry 94 O2 Sat by Pulse Oximetry 93 O2 Sat by Pulse Oximetry 93 O2 Sat by Pulse Oximetry 93 O2 Sat by Pulse Oximetry 91 O2 Sat by Pulse Oximetry 91 O2 Sat by Pulse Oximetry 94 O2 Sat by Pulse Oximetry 92 O2 Sat by Pulse Oximetry 94 O2 Sat by Pulse Oximetry 93 O2 Sat by Pulse Oximetry 93 O2 Sat by Pulse Oximetry 95 O2 Sat by Pulse Oximetry 95 O2 Sat by Pulse Oximetry 94 O2 Sat by Pulse Oximetry 92 O2 Sat by Pulse Oximetry 95 General Limitations: No Limitations General Appearance: Alert and In No Apparent Distress Head Head Exam: Normal Inspection Eyes Eye exam: Normal Appearance ENT ENT Exam: Normal Exam Neck Neck Exam: Normal Inspection Chest Chest Inspection: Normal Inspection Respiratory Respiratory Exam: Normal Lung Sounds Bilat Cardiovascular Cardiovascular Exam: Regular Rate and Normal Rhythm Abdominal Exam Abdominal Exam: Normal Inspection, Soft, Distention, Tenderness (Generalized) and Hypoactive Bowel Sounds; negative Guarding, Rebound, Rigidity or Organomegaly Extremities Extremities Exam: Normal Inspection Back Back Exam: Normal Inspection Neurological Neurological Exam: Alert, Oriented X3 and CN II-XII Intact Psychiatric Psychiatric Exam: Normal Affect and Normal Mood Skin Skin Exam: Warm, Dry, Intact and Normal Color COURSE Treatment Treatment: Patient's discomfort has improved significantly while in the ER. Patient is very anxious and is requesting anxiety medication, since discussing need for admission. Discussed results of labs and imaging. Discussed need for follow-up for lung nodule and patient states she will discuss with her PCP. Since patient is not nauseated or vomiting at this time she opted to hold off on NG tube. At this time patient is sitting up in bed comfortable and does not appear to be in pain. Consultation Called: 17:41 Consultation Comments: Discussed case with Dr. Carrington. Discussed labs and imaging. Dr. Carrington is agreeable with admission. Will consult Dr. Garcia although since it is only a possible partial obstruction and patient is very stable I think it would be safe to have him see her in the morning. [facility] Labs Reviewed 07/01/24 13:45 07/01/24 13:45 Laboratory: WBC 3.6 X10^3/uL (3.6-10.0) 07/01/24 13:45 RBC 4.41 X10^6/uL (3.5-5.4) 07/01/24 13:45 Hgb 12.9 g/dL (12.0-16.0) 07/01/24 13:45 Hct 38.7 % (36.0-47.0) 07/01/24 13:45 MCV 87.6 fL (80.0-100.0) 07/01/24 13:45 MCH 29.2 pg (27.0-34.0) 07/01/24 13:45 MCHC 33.4 g/dL (33.0-35.0) 07/01/24 13:45 RDW 15.3 % (11.6-16.5) 07/01/24 13:45 Plt Count 234 X10^3/uL (150.0-450.0) 07/01/24 13:45 MPV 7.9 fL (7.4-11.0) 07/01/24 13:45 Neut % (Auto) 56.3 % (42.0-75.0) 07/01/24 13:45 Lymph % (Auto) 31.6 % (21.0-51.0) 07/01/24 13:45 [place] % (Auto) 10.3 % (0.0-13.0) 07/01/24 13:45 Eos % (Auto) 0.6 % (0.9-2.9) L 07/01/24 13:45 Baso % (Auto) 1.2 % (0.2-1.0) H 07/01/24 13:45 Neut # (Auto) 2.0 x10^3/uL (2.2-4.8) L 07/01/24 13:45 Lymph # (Auto) 1.1 X10^3/uL (1.3-2.9) L 07/01/24 13:45 [place] # (Auto) 0.4 x10^3/uL (0.3-0.8) 07/01/24 13:45 Eos # (Auto) 0.0 x10^3/uL (0.0-0.2) 07/01/24 13:45 Baso # (Auto) 0.0 X10^3/uL (0.0-0.1) 07/01/24 13:45 Absolute Nucleated RBC 0.2 /100WBC 07/01/24 13:45 Sodium 139 mmol/L (136-145) 07/01/24 13:45 Corrected Sodium TNP 07/01/24 13:45 Potassium 3.5 mmol/L (3.5-5.1) 07/01/24 13:45 Chloride 97 mmol/L (98-107) L 07/01/24 13:45 Carbon Dioxide 33.9 mmol/L (21-32) H 07/01/24 13:45 BUN 7 mg/dL (7-18) 07/01/24 13:45 Creatinine 0.76 mg/dL (0.55-1.02) 07/01/24 13:45 Est GFR (MDRD) Af Amer > 60 (>60) 07/01/24 13:45 Est GFR (MDRD) Non-Af > 60 (>60) 07/01/24 13:45 Glucose 106 mg/dL (65-99) H 07/01/24 13:45 Calcium 8.7 mg/dL (8.5-10.1) 07/01/24 13:45 Corrected Calcium TNP 07/01/24 13:45 Total Bilirubin 0.30 mg/dL (0.2-1.0) 07/01/24 13:45 AST 23 Units/L (15-37) 07/01/24 13:45 ALT 12 Units/L (12-78) 07/01/24 13:45 Alkaline Phosphatase 105 Units/L (46-116) 07/01/24 13:45 Total Protein 7.9 g/dL (6.4-8.2) 07/01/24 13:45 Albumin 3.5 g/dL (3.4-5.0) 07/01/24 13:45 Globulin 4.4 g/dL (2.5-4.5) 07/01/24 13:45 Albumin/Globulin Ratio 0.8 Ratio (1.1-2.1) L 07/01/24 13:45 Amylase 43 Units/L (25-115) 07/01/24 13:45 Lipase 17 Units/L (16-77) 07/01/24 13:45 Specimen Type Clean catch urine 07/01/24 14:18 Urine Color Pale yellow (YELLOW) 07/01/24 14:18 Urine Appearance Clear (CLEAR) 07/01/24 14:18 Urine pH 8.0 (5.0 - 8.0) 07/01/24 14:18 Ur Specific [place] 1.015 (1.000-1.030) 07/01/24 14:18 Urine Protein Negative (NEGATIVE) 07/01/24 14:18 Urine Glucose (UA) Negative (NEGATIVE) 07/01/24 14:18 Urine Ketones Negative (NEGATIVE) 07/01/24 14:18 Urine Blood 2+ (NEGATIVE) 07/01/24 14:18 Urine Nitrite Negative (NEGATIVE) 07/01/24 14:18 Urine Bilirubin Negative (NEGATIVE) 07/01/24 14:18 Urine Urobilinogen Normal (NORMAL) 07/01/24 14:18 Ur Leukocyte Esterase Negative (NEGATIVE) 07/01/24 14:18 Urine RBC 20-30 /HPF (0-3) A 07/01/24 14:18 Urine WBC 0-2 /HPF (0-5) 07/01/24 14:18 Ur Squamous Epith Cells Rare /HPF (NEGATIVE) 07/01/24 14:18 Urine Bacteria Trace /HPF (NEGATIVE) 07/01/24 14:18 Urine Mucus Few /HPF (NEGATIVE) 07/01/24 14:18 Ur Culture Indicated? No/not indicated 07/01/24 14:18 Opioid Opioid Risk Tool Age (Omar box if 16-45): No History of Preadolescent Sexual Abuse: No Total: 0 Total Score Risk Category: Low Risk Copyright: Tom MOSES predicting aberrant behaviors Discharge Plan Diagnosis Discharge Problem: Partial obstruction of small intestine Discharge Plan Patient Disposition: 09 ADMITTED INPATIENT Condition: Stable Prescriptions: No Action pantoprazole 40 mg tablet,delayed release (DR/EC) 40 mg PO QDAY alprazolam 1 mg tablet 1 mg PO TID PRN Patient Comments: [NO ORIGINAL SIG] methadone 10 mg tablet 10 mg PO TID PRN cyanocobalamin (vitamin B-12) 1,000 mcg/mL solution 1,000 mcg subcut WEEKLY Patient Comments: [NO ORIGINAL SIG] oxycodone 10 mg tablet 10 mg PO TID PRN Health Concerns: Post Hospitalization: new medications and changes needed to prevent readmission or further decline. Pt educated and given instructions on all concerns. Plan of Treatment: Continue with present treatment and follow up plan. Pt is to keep follow up appointment as instructed and take medications as ordered. Orders to Discharge Patient Discharge Orders: Transfer (Routine); Ordered 07/01/24 Ordered By: Vinay Juarez Follow ups/Referrals Follow ups/Referrals: ,Misc [Primary Care Provider] - 3 days Instructions Stand Alone Forms: Find Help Web Site, Post Hospital Follow Up Care
[2024-07-01] MEDS: NS 1,000 ML IV 1,000 ML IV SCH (18:06)
[2024-07-01] MEDS ORDERED: ZOFRAN INJ 4 MG VIAL IVP PRN (19:16)
[2024-07-01] MEDS: PROTONIX INJ 40 MG VIAL 80 MG in NS 100 ML IV 80 ML IV SCH (20:09)
[2024-07-01] MEDS: ATIVAN INJ 2 MG VIAL IVP SCH (20:10)
[2024-07-02 06:48] LABS: BASOPHILS % (AUTO) 0.4 % (0.2-1.0); EOSINOPHILS % (AUTO) 0.6 % (0.9-2.9); HEMATOCRIT 32.6 % (36.0-47.0); HEMOGLOBIN 10.9 g/dL (12.0-16.0); LYMPHOCYTES # (AUTO) 0.8 X10^3/uL (1.3-2.9); MEAN CORPUSCULAR HEMOGLOBIN 29.2 pg (27.0-34.0); MEAN CORPUSCULAR HGB CONC 33.4 g/dL (33.0-35.0); MEAN CORPUSCULAR VOLUME 87.4 fL (80.0-100.0); MEAN PLATELET VOLUME 7.9 fL (7.4-11.0); MONOCYTES # (AUTO) 0.3 x10^3/uL (0.3-0.8); MONOCYTES % (AUTO) 15.4 % (0.0-13.0); NEUTROPHILS # (AUTO) 1.1 x10^3/uL (2.2-4.8); NEUTROPHILS % (AUTO) 49.6 % (42.0-75.0); PLATELET COUNT 175 X10^3/uL (150.0-450.0); RED BLOOD COUNT 3.73 X10^6/uL (3.5-5.4); RED CELL DISTRIBUTION WIDTH 15.5 % (11.6-16.5); WHITE BLOOD COUNT 2.3 X10^3/uL (3.6-10.0)
[2024-07-02 07:25] LABS: ALANINE AMINOTRANSFERASE 10 Units/L (12-78); ALBUMIN 2.6 g/dL (3.4-5.0); ALKALINE PHOSPHATASE 81 Units/L (46-116); ASPARTATE AMINO TRANSFERASE 20 Units/L (15-37); BLOOD UREA NITROGEN 7 mg/dL (7-18); CALCIUM 7.9 mg/dL (8.5-10.1); CARBON DIOXIDE 32.1 mmol/L (21-32); CHLORIDE 106 mmol/L (98-107); CREATININE 0.66 mg/dL (0.55-1.02); GLUCOSE 79 mg/dL (65-99); MAGNESIUM 2.4 mg/dL (2.0-2.9); POTASSIUM 3.5 mmol/L (3.5-5.1); SODIUM 142 mmol/L (136-145); TOTAL PROTEIN 5.9 g/dL (6.4-8.2); eGFR NON BLACK RACES > 60 (>60)
[2024-07-02 07:39] LABS: PLATELET MORPHOLOGY COMMENT NORMAL (NORMAL)
[2024-07-02] MEDS ORDERED: CONSULT PHARMACY - POTASSIUM & MAGNESIUM XX SCH (08:00)
--- NOTE | 2024-07-02 10:15 | DR.H&P ---
H&P History & Physical for Day of: H&P Date: 07/02/24 Chief Complaint Chief Complaint: abdominal pain History of Present Illness History of Present Illness: Ms Marti is a 73y/o female with a PMH of chronic constipation, anxiety, depression, OA, chronic pain and opioid use presented with worsening abdominal pain. She reports having a hx of constipation and takes several different laxatives and stool softners. She was having severe abdominal pain yesterday so came to the ER. She does see Dr Garcia and is scheduled for colonoscopy later this week. ER work up showed CTAP showing partial SBO along with right spiculated lung nodule concerning for malignancy. These results were discussed with patient. She was started on fluids, pain control and NPO status. She is feeling better this morning. She states her abdomen is not as distended as it was at home. Denies N/V. Labs/imaging reviewed: -WBC 2.3 Hgb 10.9 Plt 175 K 3.5 BUN/Cr 7/0.66 -CTAP reviewed Plan: surgery consult for Dr Garcia, continue IV fluids, pain control and NPO status. Follow KUB results. Replace electrolytes as needed. Monitor AM labs/imaging. Past Medical History Past Medical History: Anxiety, Arthritis and Depression Past Surgical History Surgical History: Hysterectomy and Ortho Surgery Family History Family Medical History: Cancer, [place] and Hypertension Social History Does patient currently use any type of tobacco product: No Have you used tobacco products in the last 12 months: No Type of Tobacco Use: None Does any household member use tobacco: No Alcohol Use: None Drug Use: None Medications Home Medications: Home Medications Medication Instructions Recorded Confirmed Type pantoprazole 40 mg tablet,delayed 40 mg PO QDAY 06/05/24 07/01/24 History release alprazolam 1 mg tablet 1 mg PO TID PRN 07/01/24 07/01/24 History cyanocobalamin (vitamin B-12) 1,000 mcg subcut WEEKLY 07/01/24 07/01/24 History 1,000 mcg/mL injection solution methadone 10 mg tablet 10 mg PO TID PRN 07/01/24 07/01/24 History oxycodone 10 mg tablet 10 mg PO TID PRN 07/01/24 07/01/24 History Allergies Allergies Allergy/AdvReac Type Severity Reaction Status Date / Time Sulfa (Sulfonamide Allergy Verified 06/26/24 14:25 Antibiotics) [SULFA] Labs 07/02/24 05:43 07/02/24 05:43 Labs: Laboratory WBC 2.3 X10^3/uL (3.6-10.0) L 07/02/24 05:43 RBC 3.73 X10^6/uL (3.5-5.4) 07/02/24 05:43 Hgb 10.9 g/dL (12.0-16.0) L D 07/02/24 05:43 Hct 32.6 % (36.0-47.0) L 07/02/24 05:43 MCV 87.4 fL (80.0-100.0) 07/02/24 05:43 MCH 29.2 pg (27.0-34.0) 07/02/24 05:43 MCHC 33.4 g/dL (33.0-35.0) 07/02/24 05:43 RDW 15.5 % (11.6-16.5) 07/02/24 05:43 Plt Count 175 X10^3/uL (150.0-450.0) 07/02/24 05:43 Plt Count Comment Adequate (ADEQUATE) 07/02/24 05:43 MPV 7.9 fL (7.4-11.0) 07/02/24 05:43 Neut % (Auto) 49.6 % (42.0-75.0) 07/02/24 05:43 Lymph % (Auto) 34.0 % (21.0-51.0) 07/02/24 05:43 [place] % (Auto) 15.4 % (0.0-13.0) H 07/02/24 05:43 Eos % (Auto) 0.6 % (0.9-2.9) L 07/02/24 05:43 Baso % (Auto) 0.4 % (0.2-1.0) 07/02/24 05:43 Neut # (Auto) 1.1 x10^3/uL (2.2-4.8) L 07/02/24 05:43 Lymph # (Auto) 0.8 X10^3/uL (1.3-2.9) L 07/02/24 05:43 [place] # (Auto) 0.3 x10^3/uL (0.3-0.8) 07/02/24 05:43 Eos # (Auto) 0.0 x10^3/uL (0.0-0.2) 07/02/24 05:43 Baso # (Auto) 0.0 X10^3/uL (0.0-0.1) 07/02/24 05:43 Absolute Nucleated RBC 0.1 /100WBC 07/02/24 05:43 Total Counted 50 07/02/24 05:43 Neutrophils % (Manual) 58 % (39-76) 07/02/24 05:43 Lymphocytes % (Manual) 33 % (13-43) 07/02/24 05:43 Monocytes % (Manual) 9 % (4-9) 07/02/24 05:43 Plt Morphology Comment Normal (NORMAL) 07/02/24 05:43 RBC Morphology Normal (NORMAL) 07/02/24 05:43 Sodium 142 mmol/L (136-145) 07/02/24 05:43 Corrected Sodium TNP 07/02/24 05:43 Potassium 3.5 mmol/L (3.5-5.1) 07/02/24 05:43 Chloride 106 mmol/L (98-107) 07/02/24 05:43 Carbon Dioxide 32.1 mmol/L (21-32) H 07/02/24 05:43 BUN 7 mg/dL (7-18) 07/02/24 05:43 Creatinine 0.66 mg/dL (0.55-1.02) 07/02/24 05:43 Est GFR (MDRD) Af Amer > 60 (>60) 07/02/24 05:43 Est GFR (MDRD) Non-Af > 60 (>60) 07/02/24 05:43 Glucose 79 mg/dL (65-99) 07/02/24 05:43 Calcium 7.9 mg/dL (8.5-10.1) L 07/02/24 05:43 Corrected Calcium 9.0 mg/dL (8.5-10.1) 07/02/24 05:43 Magnesium 2.4 mg/dL (2.0-2.9) 07/02/24 05:43 Total Bilirubin 0.30 mg/dL (0.2-1.0) 07/02/24 05:43 AST 20 Units/L (15-37) 07/02/24 05:43 ALT 10 Units/L (12-78) L 07/02/24 05:43 Alkaline Phosphatase 81 Units/L (46-116) 07/02/24 05:43 Total Protein 5.9 g/dL (6.4-8.2) L 07/02/24 05:43 Albumin 2.6 g/dL (3.4-5.0) L 07/02/24 05:43 Globulin 3.3 g/dL (2.5-4.5) 07/02/24 05:43 Albumin/Globulin Ratio 0.8 Ratio (1.1-2.1) L 07/02/24 05:43 Amylase 43 Units/L (25-115) 07/01/24 13:45 Lipase 17 Units/L (16-77) 07/01/24 13:45 Specimen Type Clean catch urine 07/01/24 14:18 Urine Color Pale yellow (YELLOW) 07/01/24 14:18 Urine Appearance Clear (CLEAR) 07/01/24 14:18 Urine pH 8.0 (5.0 - 8.0) 07/01/24 14:18 Ur Specific [place] 1.015 (1.000-1.030) 07/01/24 14:18 Urine Protein Negative (NEGATIVE) 07/01/24 14:18 Urine Glucose (UA) Negative (NEGATIVE) 07/01/24 14:18 Urine Ketones Negative (NEGATIVE) 07/01/24 14:18 Urine Blood 2+ (NEGATIVE) 07/01/24 14:18 Urine Nitrite Negative (NEGATIVE) 07/01/24 14:18 Urine Bilirubin Negative (NEGATIVE) 07/01/24 14:18 Urine Urobilinogen Normal (NORMAL) 07/01/24 14:18 Ur Leukocyte Esterase Negative (NEGATIVE) 07/01/24 14:18 Urine RBC 20-30 /HPF (0-3) A 07/01/24 14:18 Urine WBC 0-2 /HPF (0-5) 07/01/24 14:18 Ur Squamous Epith Cells Rare /HPF (NEGATIVE) 07/01/24 14:18 Urine Bacteria Trace /HPF (NEGATIVE) 07/01/24 14:18 Urine Mucus Few /HPF (NEGATIVE) 07/01/24 14:18 Ur Culture Indicated? No/not indicated 07/01/24 14:18 Review of Systems Constitutional: No Symptoms Reported Eyes: No Symptoms Reported ENT: No Symptoms Reported Respiratory: No Symptoms Reported Cardiovascular: No Symptoms Reported Gastrointestinal: Abdominal Pain and Constipation Genitourinary: No Symptoms Reported Musculoskeletal: Back Pain Skin: No Symptoms Reported Neurological: No Symptoms Reported Physical Exam Vital Signs: Vital Signs Temperature 97.7 F Pulse Rate [Bilateral Radial] 62 Respiratory Rate 19 Blood Pressure [Right Arm] 157/69 O2 Sat by Pulse Oximetry 99 Oriented: Normal Respiratory: Diminished Throughout Cardiovascular: Normal Auscultation: Bowel Sounds: Decreased Tenderness: Periumbilical and Mild Skin: Decreased [place] Musculoskeletal: Back:Thoracic, Back:Lumbar and Back:Paraspinous Psychiatric: Normal Mood Description: Calm Affect: Normal Speech Pattern: Clear and Appropriate Assessment/Plan (1) Partial obstruction of small intestine: Status: Acute (2) Chronic constipation: Status: Chronic (3) Depression: Status: Chronic (4) Anxiety: Status: Chronic (5) Opioid use: Status: Chronic Review H&P Reviewed: Yes Patient was examined?: Yes
[2024-07-02] MEDS: NS IV ONE (10:18)
[2024-07-02] MEDS: POTASSIUM CHLORIDE IV ONE (10:18)
[2024-07-03 06:15] LABS: BASOPHILS % (AUTO) 0.6 % (0.2-1.0); EOSINOPHILS % (AUTO) 0.3 % (0.9-2.9); HEMATOCRIT 37.9 % (36.0-47.0); HEMOGLOBIN 12.8 g/dL (12.0-16.0); LYMPHOCYTES # (AUTO) 0.9 X10^3/uL (1.3-2.9); LYMPHOCYTES % (AUTO) 35.1 % (21.0-51.0); MEAN CORPUSCULAR HEMOGLOBIN 29.7 pg (27.0-34.0); MEAN CORPUSCULAR HGB CONC 33.7 g/dL (33.0-35.0); MEAN CORPUSCULAR VOLUME 88.3 fL (80.0-100.0); MEAN PLATELET VOLUME 7.7 fL (7.4-11.0); MONOCYTES # (AUTO) 0.3 x10^3/uL (0.3-0.8); MONOCYTES % (AUTO) 12.3 % (0.0-13.0); NEUTROPHILS # (AUTO) 1.4 x10^3/uL (2.2-4.8); NEUTROPHILS % (AUTO) 51.7 % (42.0-75.0); PLATELET COUNT 196 X10^3/uL (150.0-450.0); RED CELL DISTRIBUTION WIDTH 15.7 % (11.6-16.5); WHITE BLOOD COUNT 2.7 X10^3/uL (3.6-10.0)
[2024-07-03 06:32] LABS: ALANINE AMINOTRANSFERASE 10 Units/L (12-78); ALKALINE PHOSPHATASE 102 Units/L (46-116); ASPARTATE AMINO TRANSFERASE 23 Units/L (15-37); BLOOD UREA NITROGEN 4 mg/dL (7-18); CALCIUM 8.4 mg/dL (8.5-10.1); CARBON DIOXIDE 26.7 mmol/L (21-32); CHLORIDE 105 mmol/L (98-107); COR CA(FOR HYPOALB) 9.2 mg/dL (8.5-10.1); CREATININE 0.59 mg/dL (0.55-1.02); GLUCOSE 87 mg/dL (65-99); SODIUM 139 mmol/L (136-145); eGFR NON BLACK RACES > 60 (>60)
--- NOTE | 2024-07-03 07:18 | RAD ---
EXAM:KUBHISTORY:SBO;COMPARISON: .br.br.br.br nonobstructive bowel gas pattern. No evidence of pneumoperitoneum. No pathologic soft tissue calcification. No acute osseous abnormality. Posterior spinal fusion hardware. The status stimulator device.IMPRESSION:No acute abdominal process. No evidence of small-bowel obstruction.THIS IS AN ELECTRONICALLY VERIFIED FINAL REPORT07/03/2024 7:15 AM - Electronically signed by Ki Bucio MD
[2024-07-03] MEDS: SUPREP BOWEL PREP KIT PO SCH (08:32)
--- NOTE | 2024-07-03 10:23 | DR.PROGNOT ---
HOSPITAL PROGRESS NOTE Progress Note for Day of: Progress Note Date: 07/03/24 Chief Complaint Chief Complaint: Still complaining of abdominal pain but not as severe, no nausea or vomiting, appetite is poor. KUB showed improving bowel obstruction, WBC is 2.7, hemoglobin 12.8. Normal liver function test, normal BUN and creatinine. For colonoscopy in the morning. Past Medical Family Social History Past Med/Fam/Surg Hx: No changes since H&P Allergies: Allergies Sulfa (Sulfonamide Antibiotics) [SULFA] Allergy (Verified 06/26/24 14:25) Vital Signs Vital Signs: Vital Signs Temperature 97.6 F Temperature 98 F Pulse Rate [Bilateral Radial] 73 Pulse Rate [Bilateral Radial] 73 Respiratory Rate 18 Respiratory Rate 20 Blood Pressure [Right Arm] 157/67 Blood Pressure [Right Arm] 141/66 O2 Sat by Pulse Oximetry 96 O2 Sat by Pulse Oximetry 95 Physical Exam Oriented: Normal Eyes: Normal Ear: Normal Nose: Normal Throat: Normal Respiratory: Normal Cardiovascular: Normal GI:Auscultation: Normal and Decreased GI: Tenderness: Diffuse (Soft abdomen with diffuse tenderness and hypoactive bowel sounds), Periumbilical and Mild Skin: Decreased [place] Musculoskeletal: Back:Thoracic, Back:Lumbar and Back:Paraspinous Psychiatric: Normal Mood Description: Calm Affect: Normal Speech Pattern: Clear and Appropriate Laboratory and Diagnostics 07/03/24 05:48 07/03/24 05:48 Labs: Laboratory WBC 2.7 X10^3/uL (3.6-10.0) L 07/03/24 05:48 RBC 4.30 X10^6/uL (3.5-5.4) 07/03/24 05:48 Hgb 12.8 g/dL (12.0-16.0) 07/03/24 05:48 Hct 37.9 % (36.0-47.0) 07/03/24 05:48 MCV 88.3 fL (80.0-100.0) 07/03/24 05:48 MCH 29.7 pg (27.0-34.0) 07/03/24 05:48 MCHC 33.7 g/dL (33.0-35.0) 07/03/24 05:48 RDW 15.7 % (11.6-16.5) 07/03/24 05:48 Plt Count 196 X10^3/uL (150.0-450.0) 07/03/24 05:48 Plt Count Comment Adequate (ADEQUATE) 07/02/24 05:43 MPV 7.7 fL (7.4-11.0) 07/03/24 05:48 Neut % (Auto) 51.7 % (42.0-75.0) 07/03/24 05:48 Lymph % (Auto) 35.1 % (21.0-51.0) 07/03/24 05:48 [place] % (Auto) 12.3 % (0.0-13.0) 07/03/24 05:48 Eos % (Auto) 0.3 % (0.9-2.9) L 07/03/24 05:48 Baso % (Auto) 0.6 % (0.2-1.0) 07/03/24 05:48 Neut # (Auto) 1.4 x10^3/uL (2.2-4.8) L 07/03/24 05:48 Lymph # (Auto) 0.9 X10^3/uL (1.3-2.9) L 07/03/24 05:48 [place] # (Auto) 0.3 x10^3/uL (0.3-0.8) 07/03/24 05:48 Eos # (Auto) 0.0 x10^3/uL (0.0-0.2) 07/03/24 05:48 Baso # (Auto) 0.0 X10^3/uL (0.0-0.1) 07/03/24 05:48 Absolute Nucleated RBC 0.1 /100WBC 07/03/24 05:48 Total Counted 50 07/02/24 05:43 Neutrophils % (Manual) 58 % (39-76) 07/02/24 05:43 Lymphocytes % (Manual) 33 % (13-43) 07/02/24 05:43 Monocytes % (Manual) 9 % (4-9) 07/02/24 05:43 Plt Morphology Comment Normal (NORMAL) 07/02/24 05:43 RBC Morphology Normal (NORMAL) 07/02/24 05:43 Sodium 139 mmol/L (136-145) 07/03/24 05:48 Corrected Sodium TNP 07/03/24 05:48 Potassium 4.0 mmol/L (3.5-5.1) 07/03/24 05:48 Chloride 105 mmol/L (98-107) 07/03/24 05:48 Carbon Dioxide 26.7 mmol/L (21-32) 07/03/24 05:48 BUN 4 mg/dL (7-18) L 07/03/24 05:48 Creatinine 0.59 mg/dL (0.55-1.02) 07/03/24 05:48 Est GFR (MDRD) Af Amer > 60 (>60) 07/03/24 05:48 Est GFR (MDRD) Non-Af > 60 (>60) 07/03/24 05:48 Glucose 87 mg/dL (65-99) 07/03/24 05:48 Calcium 8.4 mg/dL (8.5-10.1) L 07/03/24 05:48 Corrected Calcium 9.2 mg/dL (8.5-10.1) 07/03/24 05:48 Magnesium 2.0 mg/dL (2.0-2.9) 07/03/24 05:48 Total Bilirubin 0.40 mg/dL (0.2-1.0) 07/03/24 05:48 AST 23 Units/L (15-37) 07/03/24 05:48 ALT 10 Units/L (12-78) L 07/03/24 05:48 Alkaline Phosphatase 102 Units/L (46-116) 07/03/24 05:48 Total Protein 7.0 g/dL (6.4-8.2) 07/03/24 05:48 Albumin 3.0 g/dL (3.4-5.0) L 07/03/24 05:48 Globulin 4.0 g/dL (2.5-4.5) 07/03/24 05:48 Albumin/Globulin Ratio 0.8 Ratio (1.1-2.1) L 07/03/24 05:48 Amylase 43 Units/L (25-115) 07/01/24 13:45 Lipase 17 Units/L (16-77) 07/01/24 13:45 Specimen Type Clean catch urine 07/01/24 14:18 Urine Color Pale yellow (YELLOW) 07/01/24 14:18 Urine Appearance Clear (CLEAR) 07/01/24 14:18 Urine pH 8.0 (5.0 - 8.0) 07/01/24 14:18 Ur Specific [place] 1.015 (1.000-1.030) 07/01/24 14:18 Urine Protein Negative (NEGATIVE) 07/01/24 14:18 Urine Glucose (UA) Negative (NEGATIVE) 07/01/24 14:18 Urine Ketones Negative (NEGATIVE) 07/01/24 14:18 Urine Blood 2+ (NEGATIVE) 07/01/24 14:18 Urine Nitrite Negative (NEGATIVE) 07/01/24 14:18 Urine Bilirubin Negative (NEGATIVE) 07/01/24 14:18 Urine Urobilinogen Normal (NORMAL) 07/01/24 14:18 Ur Leukocyte Esterase Negative (NEGATIVE) 07/01/24 14:18 Urine RBC 20-30 /HPF (0-3) A 07/01/24 14:18 Urine WBC 0-2 /HPF (0-5) 07/01/24 14:18 Ur Squamous Epith Cells Rare /HPF (NEGATIVE) 07/01/24 14:18 Urine Bacteria Trace /HPF (NEGATIVE) 07/01/24 14:18 Urine Mucus Few /HPF (NEGATIVE) 07/01/24 14:18 Ur Culture Indicated? No/not indicated 07/01/24 14:18 Assessment and Plan 1: Resolving small bowel obstruction. 2: Recent pneumatosis intestinalis with recurrent bowel obstruction. For colonoscopy in the morning. Problem Patient Problems: Patient Problems Partial obstruction of small intestine (Acute) K56.600
--- NOTE | 2024-07-03 10:52 | PCM.PROG ---
Progress Note Progress Note for Day of Date of Exam: 07/03/24 Subjective Subjective: Patient seen at bedside, no acute events overnight. She is feeling better. She was started on clears. Dr Garcia saw her and plans to do colonoscopy in the morning. Denies N/V. Labs/imaging reviewed: -WBC 2.7 Hgb 12.8 -KUB: no obstruction Plan: Follow surgery recommendations, colon prep today for colonoscopy in the morning. Continue clears. Continue home medications. Zofran prn. Replace electrolytes prn. Monitor AM labs/imaging. Past Medical Family Social History Past Med/Fam/Surg Hx: No changes since H&P Allergies: Allergies Sulfa (Sulfonamide Antibiotics) [SULFA] Allergy (Verified 06/26/24 14:25) Vital Signs and I&O's Vital Signs: Vital Signs Temperature 97.6 F Temperature 98 F Pulse Rate [Bilateral Radial] 73 Pulse Rate [Bilateral Radial] 73 Respiratory Rate 18 Respiratory Rate 20 Blood Pressure [Right Arm] 157/67 Blood Pressure [Right Arm] 141/66 O2 Sat by Pulse Oximetry 96 O2 Sat by Pulse Oximetry 95 Intake and Output: Intake & Output 06/30/24 07/01/24 07/02/24 07/03/24 23:59 23:59 23:59 23:59 Intake Total 421 / 421 3730 / 3730 1217 / 1217 Balance 421 / 421 3730 / 3730 1217 / 1217 Physical Exam Oriented: Normal Eyes: Normal Ear: Normal Nose: Normal Throat: Normal Respiratory: Normal Cardiovascular: Normal Auscultation: Bowel Sounds: Normal Palpation: Normal Tenderness: Periumbilical and Mild Skin: Decreased Turgur Musculoskeletal: Back:Thoracic, Back:Lumbar and Back:Paraspinous Psychiatric: Normal Mood Description: Calm Affect: Normal Speech Pattern: Clear and Appropriate Laboratory and Diagnostics 07/03/24 05:48 07/03/24 05:48 Labs: Laboratory WBC 2.7 X10^3/uL (3.6-10.0) L 07/03/24 05:48 RBC 4.30 X10^6/uL (3.5-5.4) 07/03/24 05:48 Hgb 12.8 g/dL (12.0-16.0) 07/03/24 05:48 Hct 37.9 % (36.0-47.0) 07/03/24 05:48 MCV 88.3 fL (80.0-100.0) 07/03/24 05:48 MCH 29.7 pg (27.0-34.0) 07/03/24 05:48 MCHC 33.7 g/dL (33.0-35.0) 07/03/24 05:48 RDW 15.7 % (11.6-16.5) 07/03/24 05:48 Plt Count 196 X10^3/uL (150.0-450.0) 07/03/24 05:48 Plt Count Comment Adequate (ADEQUATE) 07/02/24 05:43 MPV 7.7 fL (7.4-11.0) 07/03/24 05:48 Neut % (Auto) 51.7 % (42.0-75.0) 07/03/24 05:48 Lymph % (Auto) 35.1 % (21.0-51.0) 07/03/24 05:48 [place] % (Auto) 12.3 % (0.0-13.0) 07/03/24 05:48 Eos % (Auto) 0.3 % (0.9-2.9) L 07/03/24 05:48 Baso % (Auto) 0.6 % (0.2-1.0) 07/03/24 05:48 Neut # (Auto) 1.4 x10^3/uL (2.2-4.8) L 07/03/24 05:48 Lymph # (Auto) 0.9 X10^3/uL (1.3-2.9) L 07/03/24 05:48 [place] # (Auto) 0.3 x10^3/uL (0.3-0.8) 07/03/24 05:48 Eos # (Auto) 0.0 x10^3/uL (0.0-0.2) 07/03/24 05:48 Baso # (Auto) 0.0 X10^3/uL (0.0-0.1) 07/03/24 05:48 Absolute Nucleated RBC 0.1 /100WBC 07/03/24 05:48 Total Counted 50 07/02/24 05:43 Neutrophils % (Manual) 58 % (39-76) 07/02/24 05:43 Lymphocytes % (Manual) 33 % (13-43) 07/02/24 05:43 Monocytes % (Manual) 9 % (4-9) 07/02/24 05:43 Plt Morphology Comment Normal (NORMAL) 07/02/24 05:43 RBC Morphology Normal (NORMAL) 07/02/24 05:43 Sodium 139 mmol/L (136-145) 07/03/24 05:48 Corrected Sodium TNP 07/03/24 05:48 Potassium 4.0 mmol/L (3.5-5.1) 07/03/24 05:48 Chloride 105 mmol/L (98-107) 07/03/24 05:48 Carbon Dioxide 26.7 mmol/L (21-32) 07/03/24 05:48 BUN 4 mg/dL (7-18) L 07/03/24 05:48 Creatinine 0.59 mg/dL (0.55-1.02) 07/03/24 05:48 Est GFR (MDRD) Af Amer > 60 (>60) 07/03/24 05:48 Est GFR (MDRD) Non-Af > 60 (>60) 07/03/24 05:48 Glucose 87 mg/dL (65-99) 07/03/24 05:48 Calcium 8.4 mg/dL (8.5-10.1) L 07/03/24 05:48 Corrected Calcium 9.2 mg/dL (8.5-10.1) 07/03/24 05:48 Magnesium 2.0 mg/dL (2.0-2.9) 07/03/24 05:48 Total Bilirubin 0.40 mg/dL (0.2-1.0) 07/03/24 05:48 AST 23 Units/L (15-37) 07/03/24 05:48 ALT 10 Units/L (12-78) L 07/03/24 05:48 Alkaline Phosphatase 102 Units/L (46-116) 07/03/24 05:48 Total Protein 7.0 g/dL (6.4-8.2) 07/03/24 05:48 Albumin 3.0 g/dL (3.4-5.0) L 07/03/24 05:48 Globulin 4.0 g/dL (2.5-4.5) 07/03/24 05:48 Albumin/Globulin Ratio 0.8 Ratio (1.1-2.1) L 07/03/24 05:48 Amylase 43 Units/L (25-115) 07/01/24 13:45 Lipase 17 Units/L (16-77) 07/01/24 13:45 Specimen Type Clean catch urine 07/01/24 14:18 Urine Color Pale yellow (YELLOW) 07/01/24 14:18 Urine Appearance Clear (CLEAR) 07/01/24 14:18 Urine pH 8.0 (5.0 - 8.0) 07/01/24 14:18 Ur Specific [place] 1.015 (1.000-1.030) 07/01/24 14:18 Urine Protein Negative (NEGATIVE) 07/01/24 14:18 Urine Glucose (UA) Negative (NEGATIVE) 07/01/24 14:18 Urine Ketones Negative (NEGATIVE) 07/01/24 14:18 Urine Blood 2+ (NEGATIVE) 07/01/24 14:18 Urine Nitrite Negative (NEGATIVE) 07/01/24 14:18 Urine Bilirubin Negative (NEGATIVE) 07/01/24 14:18 Urine Urobilinogen Normal (NORMAL) 07/01/24 14:18 Ur Leukocyte Esterase Negative (NEGATIVE) 07/01/24 14:18 Urine RBC 20-30 /HPF (0-3) A 07/01/24 14:18 Urine WBC 0-2 /HPF (0-5) 07/01/24 14:18 Ur Squamous Epith Cells Rare /HPF (NEGATIVE) 07/01/24 14:18 Urine Bacteria Trace /HPF (NEGATIVE) 07/01/24 14:18 Urine Mucus Few /HPF (NEGATIVE) 07/01/24 14:18 Ur Culture Indicated? No/not indicated 07/01/24 14:18 Plan (1) Partial obstruction of small intestine: Status: Acute (2) Chronic constipation: Status: Chronic (3) Depression: Status: Chronic (4) Anxiety: Status: Chronic (5) Opioid use: Status: Chronic
[2024-07-03] MEDS: NORCO 5/325 MG TAB PO PRN (16:57)
--- NOTE | 2024-07-04 10:10 | PCM.PROG ---
Progress Note Progress Note for Day of Date of Exam: 07/04/24 Subjective Subjective: Patient seen at bedside, no acute events overnight. She is scheduled for colonoscopy today. She completed the prep and is currently NPO. She states her abdomen feels better. Labs/imaging reviewed: -WBC 2.7 Hgb 12.8 -KUB: no obstruction Plan: Follow surgery recommendations, plan for colonoscopy today. NPO status. Zofran prn. Replace electrolytes prn. Monitor AM labs/imaging. Past Medical Family Social History Past Med/Fam/Surg Hx: No changes since H&P Allergies: Allergies Sulfa (Sulfonamide Antibiotics) [SULFA] Allergy (Verified 06/26/24 14:25) Vital Signs and I&O's Vital Signs: Vital Signs Temperature 97.8 F Temperature 97.9 F Pulse Rate [Bilateral Radial] 86 Pulse Rate [Bilateral Radial] 75 Respiratory Rate 18 Respiratory Rate 18 Blood Pressure [Right Arm] 148/85 Blood Pressure [Right Arm] 144/67 O2 Sat by Pulse Oximetry 98 O2 Sat by Pulse Oximetry 97 Intake and Output: Intake & Output 07/01/24 07/02/24 07/03/24 07/04/24 23:59 23:59 23:59 23:59 Intake Total 421 / 421 3730 / 3730 3089 / 3089 1030 / 1030 Balance 421 / 421 3730 / 3730 3089 / 3089 1030 / 1030 Physical Exam Oriented: Normal Eyes: Normal Ear: Normal Nose: Normal Throat: Normal Respiratory: Normal Cardiovascular: Normal Auscultation: Bowel Sounds: Normal Palpation: Normal Tenderness: Periumbilical and Mild Skin: Decreased Turgur Musculoskeletal: Back:Thoracic, Back:Lumbar and Back:Paraspinous Psychiatric: Normal Mood Description: Calm Affect: Normal Speech Pattern: Clear and Appropriate Laboratory and Diagnostics 07/03/24 05:48 07/03/24 05:48 Labs: Laboratory WBC 2.7 X10^3/uL (3.6-10.0) L 07/03/24 05:48 RBC 4.30 X10^6/uL (3.5-5.4) 07/03/24 05:48 Hgb 12.8 g/dL (12.0-16.0) 07/03/24 05:48 Hct 37.9 % (36.0-47.0) 07/03/24 05:48 MCV 88.3 fL (80.0-100.0) 07/03/24 05:48 MCH 29.7 pg (27.0-34.0) 07/03/24 05:48 MCHC 33.7 g/dL (33.0-35.0) 07/03/24 05:48 RDW 15.7 % (11.6-16.5) 07/03/24 05:48 Plt Count 196 X10^3/uL (150.0-450.0) 07/03/24 05:48 Plt Count Comment Adequate (ADEQUATE) 07/02/24 05:43 MPV 7.7 fL (7.4-11.0) 07/03/24 05:48 Neut % (Auto) 51.7 % (42.0-75.0) 07/03/24 05:48 Lymph % (Auto) 35.1 % (21.0-51.0) 07/03/24 05:48 [place] % (Auto) 12.3 % (0.0-13.0) 07/03/24 05:48 Eos % (Auto) 0.3 % (0.9-2.9) L 07/03/24 05:48 Baso % (Auto) 0.6 % (0.2-1.0) 07/03/24 05:48 Neut # (Auto) 1.4 x10^3/uL (2.2-4.8) L 07/03/24 05:48 Lymph # (Auto) 0.9 X10^3/uL (1.3-2.9) L 07/03/24 05:48 [place] # (Auto) 0.3 x10^3/uL (0.3-0.8) 07/03/24 05:48 Eos # (Auto) 0.0 x10^3/uL (0.0-0.2) 07/03/24 05:48 Baso # (Auto) 0.0 X10^3/uL (0.0-0.1) 07/03/24 05:48 Absolute Nucleated RBC 0.1 /100WBC 07/03/24 05:48 Total Counted 50 07/02/24 05:43 Neutrophils % (Manual) 58 % (39-76) 07/02/24 05:43 Lymphocytes % (Manual) 33 % (13-43) 07/02/24 05:43 Monocytes % (Manual) 9 % (4-9) 07/02/24 05:43 Plt Morphology Comment Normal (NORMAL) 07/02/24 05:43 RBC Morphology Normal (NORMAL) 07/02/24 05:43 Sodium 139 mmol/L (136-145) 07/03/24 05:48 Corrected Sodium TNP 07/03/24 05:48 Potassium 4.0 mmol/L (3.5-5.1) 07/03/24 05:48 Chloride 105 mmol/L (98-107) 07/03/24 05:48 Carbon Dioxide 26.7 mmol/L (21-32) 07/03/24 05:48 BUN 4 mg/dL (7-18) L 07/03/24 05:48 Creatinine 0.59 mg/dL (0.55-1.02) 07/03/24 05:48 Est GFR (MDRD) Af Amer > 60 (>60) 07/03/24 05:48 Est GFR (MDRD) Non-Af > 60 (>60) 07/03/24 05:48 Glucose 87 mg/dL (65-99) 07/03/24 05:48 Calcium 8.4 mg/dL (8.5-10.1) L 07/03/24 05:48 Corrected Calcium 9.2 mg/dL (8.5-10.1) 07/03/24 05:48 Magnesium 2.0 mg/dL (2.0-2.9) 07/03/24 05:48 Total Bilirubin 0.40 mg/dL (0.2-1.0) 07/03/24 05:48 AST 23 Units/L (15-37) 07/03/24 05:48 ALT 10 Units/L (12-78) L 07/03/24 05:48 Alkaline Phosphatase 102 Units/L (46-116) 07/03/24 05:48 Total Protein 7.0 g/dL (6.4-8.2) 07/03/24 05:48 Albumin 3.0 g/dL (3.4-5.0) L 07/03/24 05:48 Globulin 4.0 g/dL (2.5-4.5) 07/03/24 05:48 Albumin/Globulin Ratio 0.8 Ratio (1.1-2.1) L 07/03/24 05:48 Amylase 43 Units/L (25-115) 07/01/24 13:45 Lipase 17 Units/L (16-77) 07/01/24 13:45 Specimen Type Clean catch urine 07/01/24 14:18 Urine Color Pale yellow (YELLOW) 07/01/24 14:18 Urine Appearance Clear (CLEAR) 07/01/24 14:18 Urine pH 8.0 (5.0 - 8.0) 07/01/24 14:18 Ur Specific [place] 1.015 (1.000-1.030) 07/01/24 14:18 Urine Protein Negative (NEGATIVE) 07/01/24 14:18 Urine Glucose (UA) Negative (NEGATIVE) 07/01/24 14:18 Urine Ketones Negative (NEGATIVE) 07/01/24 14:18 Urine Blood 2+ (NEGATIVE) 07/01/24 14:18 Urine Nitrite Negative (NEGATIVE) 07/01/24 14:18 Urine Bilirubin Negative (NEGATIVE) 07/01/24 14:18 Urine Urobilinogen Normal (NORMAL) 07/01/24 14:18 Ur Leukocyte Esterase Negative (NEGATIVE) 07/01/24 14:18 Urine RBC 20-30 /HPF (0-3) A 07/01/24 14:18 Urine WBC 0-2 /HPF (0-5) 07/01/24 14:18 Ur Squamous Epith Cells Rare /HPF (NEGATIVE) 07/01/24 14:18 Urine Bacteria Trace /HPF (NEGATIVE) 07/01/24 14:18 Urine Mucus Few /HPF (NEGATIVE) 07/01/24 14:18 Ur Culture Indicated? No/not indicated 07/01/24 14:18 Plan (1) Partial obstruction of small intestine: Status: Acute (2) Chronic constipation: Status: Chronic (3) Depression: Status: Chronic (4) Anxiety: Status: Chronic (5) Opioid use: Status: Chronic
[2024-07-04] MEDS ORDERED: STERILE WATER IRRIGATION IR ONE (10:46)
[2024-07-04] MEDS: NS 1,000 ML IV 250 ML IV PRN (13:30)
[2024-07-04] MEDS: NS 1,000 ML IV 1,000 ML ONE (13:47)
[2024-07-04] MEDS: VERSED IVP PRN (13:49)
[2024-07-04] MEDS: DIPRIVAN VIAL 120 ML IVP PRN (13:52)
[2024-07-04 15:23] VITALS: RESP 18
[2024-07-04 15:24] VITALS: BP 169/77; PULSE 71; TEMP 97.1; O2SAT 98
[2024-07-04] MEDS: DIPRIVAN VIAL 20 ML ONE (15:49)
[2024-07-04] MEDS: VERSED ONE (15:49)
== END 2024-07-04 15:57 | disposition home or self-care (01) ==
LOC: ER 13:20 → MED/SURG 13:20
PROVIDERS: ADMIT Internal Medicine; ATTEND Internal Medicine
DX: F41.8 Other specified anxiety disorders; K56.690 Other partial intestinal obstruction; F32.A Depression, unspecified; F11.90 Opioid use, unspecified, uncomplicated; K63.89 Other specified diseases of intestine; K52.89 Other specified noninfective gastroenteritis and colitis; K59.09 Other constipation; Z96.82 Presence of neurostimulator; R91.1 Solitary pulmonary nodule; M19.90 Unspecified osteoarthritis, unspecified site

== ENCOUNTER 2024-08-16 12:51 | Observation (INO) ==
[2024-08-16 13:21] LABS: BILIRUBIN,URINE NEGATIVE (NEGATIVE); BLOOD/HEMOGLOBIN,URINE 3+ (NEGATIVE); GLUCOSE, URINE NEGATIVE (NEGATIVE); KETONES,URINE NEGATIVE (NEGATIVE); LEUKOCYTE ESTERASE ,URINE NEGATIVE (NEGATIVE); NITRITES,URINE NEGATIVE (NEGATIVE); PROTEIN,URINE NEGATIVE (NEGATIVE); UROBILINOGEN,URINE NORMAL (NORMAL)
[2024-08-16 13:30] LABS: APPEARANCE,URINE CLEAR (CLEAR); COLOR,URINE YELLOW (YELLOW)
[2024-08-16 13:31] LABS: BACTERIA,URINE TRACE /HPF (NEGATIVE); SQUAMOUS EPITHELIAL CELL,UR RARE /HPF (NEGATIVE)
--- NOTE | 2024-08-16 13:40 | ED.ABDFE ---
HPI Time Seen Time Seen by Provider: 08/16/24 13:37 PCP Primary Care Physician: Dr. Alex Prince HPI Comment HPI Comment: Patient states she has been having workup for abdominal pain with surgery planned for next week. Patient states abdominal pain worsened on the upper right side of her abdomen this morning and states the pain radiates to the right side of her chest up to her right shoulder. Patient states she also has been constipated and has not had a bowel movement in 3 days. Patient denies any nausea or vomiting. Patient denies fever. Complaint Chief Complaint:: Pt states that she woke up around 5am this morning with a sudden onset of right sided abdominal pain described as constant sharp stabbing pain. Pt also c/o bloating and constipation. Pt states that she hasn't had a bowel movement since 08/13/24 despite taking miralax and dulcolax. Pt also c/o nausea but denies vomiting. COVID-19 Coronavirus risk:travel/contact w/high risk person: No Has patient experienced Coronavirus symptoms: No Source History Provided: Patient Mode of arrival Mode of Arrival: Ambulatory Timing Onset of Chief Complaint: 08/16/24 PMH PMH Past Medical History: Yes Past Medical History: Anxiety, Arthritis and GERD Past Medical History Comment: chronic constipation, IBS, Rheumatoid Arthritis Past Surgical History: Yes Surgical History: Hysterectomy and Tonsillectomy Past Surgical History Comment: bilateral eye surgery, back surgery, nerve stimulator in back Family History History of Family Medical Conditions: Yes Family Medical History: Cancer, CA and Coronary Artery Disease Social History Does patient currently use any type of tobacco product: No Have you used tobacco products in the last 12 months: No Type of Tobacco Use: None Does any household member use tobacco: No Alcohol Use: None Do you use any recreational Drugs:: No Lives With: Family Lives Where: Home Travel Risk Coronavirus risk:travel/contact w/high risk person: No Has patient experienced Coronavirus symptoms: No Infectious screening In the last 2 months have you had wt loss of >10#?: NO Have you had fever, night sweats or hemotysis?: No Have you traveled outside the country in the last 6 months?: No Isolation: Standard ROS Review of Systems Constitutional: No Symptoms Reported Eyes: No Symptoms Reported ENTM: No Symptoms Reported Respiratoy: No Symptoms Reported Cardiovascular: No Symptoms Reported Gastrointestinal/Abdominal: See HPI, Abdominal Pain and Constipation; negative Diarrhea, Nausea or Vomiting Genitourinary: No Symptoms Reported Neurological: No Symptoms Reported Musculoskeletal: No Symptoms Reported Integumentary: No Symptoms Reported Hematologic/Lymphatic: No Symptoms Reported Endocrine: No Symptoms Reported Psychiatric: No Symptoms Reported All Other Systems: Reviewed and Negative PE Vital Signs Vitals: Vital Signs Temperature 98.0 F Pulse Rate 52 Pulse Rate 57 Pulse Rate 54 Pulse Rate 52 Pulse Rate 52 Pulse Rate 64 Pulse Rate 51 Pulse Rate 51 Pulse Rate 66 Pulse Rate 58 Pulse Rate 66 Respiratory Rate 24 Respiratory Rate 34 Respiratory Rate 23 Respiratory Rate 32 Respiratory Rate 17 Respiratory Rate 16 Respiratory Rate 38 Respiratory Rate 25 Respiratory Rate 27 Respiratory Rate 22 Blood Pressure 163/68 Blood Pressure 119/59 Blood Pressure 140/82 Blood Pressure 140/82 Blood Pressure 140/82 Blood Pressure 105/56 O2 Sat by Pulse Oximetry 98 O2 Sat by Pulse Oximetry 97 O2 Sat by Pulse Oximetry 93 O2 Sat by Pulse Oximetry 93 O2 Sat by Pulse Oximetry 94 O2 Sat by Pulse Oximetry 91 O2 Sat by Pulse Oximetry 90 General Limitations: No Limitations and Language Barrier General Appearance: Alert and In No Apparent Distress Head Head Exam: Normal Inspection Eyes Eye exam: Normal Appearance ENT ENT Exam: Normal Exam Neck Neck Exam: Normal Inspection Chest Chest Inspection: Normal Inspection Respiratory Respiratory Exam: Normal Lung Sounds Bilat Cardiovascular Cardiovascular Exam: Regular Rate and Normal Rhythm Abdominal Exam Abdominal Exam: Soft, Distention, Tenderness (Upper abdomen all quadrants) and Dimnished Bowel Sounds; negative Guarding, Rebound, Rigidity, Organomegaly or Ascites Rectal Rectal Exam: Deferred Back Back Exam: Normal Inspection Extremeties Extremities Exam: Normal Inspection Neurologic Neurological Exam: Alert and Oriented X3 Psychiatric Psychiatric Exam: Normal Affect and Normal Mood Skin Skin Exam: Warm, Dry and Intact COURSE Treatment Treatment: Patient had stated they were planning on doing the surgery on Tuesday but with the increased pain she does not feel safe going home and states that e would like to see a surgeon to discuss possibly doing it earlier. CT scan revealed possible colonic ileus. I suspect this may be partially due to chronic opioid use for chronic pain versus long-term use of laxatives. There is also question about adhesions and previous surgeries. Consultation Called: 15:16 Consultation Comments: Discussed case with Dr. Nugent. He is agreeable to admission with consultation to surgery. [facility] Labs Reviewed 08/16/24 14:14 08/16/24 14:14 Laboratory: WBC 3.4 X10^3/uL (3.6-10.0) L 08/16/24 14:14 RBC 4.02 X10^6/uL (3.5-5.4) 08/16/24 14:14 Hgb 11.7 g/dL (12.0-16.0) L 08/16/24 14:14 Hct 35.5 % (36.0-47.0) L 08/16/24 14:14 MCV 88.5 fL (80.0-100.0) 08/16/24 14:14 MCH 29.2 pg (27.0-34.0) 08/16/24 14:14 MCHC 33.0 g/dL (33.0-35.0) 08/16/24 14:14 RDW 14.7 % (11.6-16.5) 08/16/24 14:14 Plt Count 217 X10^3/uL (150.0-450.0) 08/16/24 14:14 MPV 7.6 fL (7.4-11.0) 08/16/24 14:14 Neut % (Auto) 46.4 % (42.0-75.0) 08/16/24 14:14 Lymph % (Auto) 35.1 % (21.0-51.0) 08/16/24 14:14 [place] % (Auto) 12.6 % (0.0-13.0) 08/16/24 14:14 Eos % (Auto) 4.9 % (0.9-2.9) H 08/16/24 14:14 Baso % (Auto) 1.0 % (0.2-1.0) 08/16/24 14:14 Neut # (Auto) 1.6 x10^3/uL (2.2-4.8) L 08/16/24 14:14 Lymph # (Auto) 1.2 X10^3/uL (1.3-2.9) L 08/16/24 14:14 [place] # (Auto) 0.4 x10^3/uL (0.3-0.8) 08/16/24 14:14 Eos # (Auto) 0.2 x10^3/uL (0.0-0.2) 08/16/24 14:14 Baso # (Auto) 0.0 X10^3/uL (0.0-0.1) 08/16/24 14:14 Absolute Nucleated RBC 0.0 /100WBC 08/16/24 14:14 Sodium 141 mmol/L (136-145) 08/16/24 14:14 Corrected Sodium TNP 08/16/24 14:14 Potassium 3.5 mmol/L (3.5-5.1) 08/16/24 14:14 Chloride 103 mmol/L (98-107) 08/16/24 14:14 Carbon Dioxide 34.7 mmol/L (21-32) H 08/16/24 14:14 BUN 7 mg/dL (7-18) 08/16/24 14:14 Creatinine 0.73 mg/dL (0.55-1.02) 08/16/24 14:14 Est GFR (MDRD) Af Amer > 60 (>60) 08/16/24 14:14 Est GFR (MDRD) Non-Af > 60 (>60) 08/16/24 14:14 Glucose 88 mg/dL (65-99) 08/16/24 14:14 Calcium 8.4 mg/dL (8.5-10.1) L 08/16/24 14:14 Corrected Calcium 9.0 mg/dL (8.5-10.1) 08/16/24 14:14 Magnesium 2.7 mg/dL (2.0-2.9) 08/16/24 14:14 Total Bilirubin 0.30 mg/dL (0.2-1.0) 08/16/24 14:14 AST 26 Units/L (15-37) 08/16/24 14:14 ALT 11 Units/L (12-78) L 08/16/24 14:14 Alkaline Phosphatase 104 Units/L (46-116) 08/16/24 14:14 Troponin I High Sens 6.1 ng/L (4.0-60.0) 08/16/24 14:14 Total Protein 7.4 g/dL (6.4-8.2) 08/16/24 14:14 Albumin 3.3 g/dL (3.4-5.0) L 08/16/24 14:14 Globulin 4.1 g/dL (2.5-4.5) 08/16/24 14:14 Albumin/Globulin Ratio 0.8 Ratio (1.1-2.1) L 08/16/24 14:14 Amylase 48 Units/L (25-115) 08/16/24 14:14 Lipase 15 Units/L (16-77) L 08/16/24 14:14 Specimen Type Clean catch urine 08/16/24 13:10 Urine Color Yellow (YELLOW) 08/16/24 13:10 Urine Appearance Clear (CLEAR) 08/16/24 13:10 Urine pH 8.0 (5.0 - 8.0) 08/16/24 13:10 Ur Specific [place] 1.020 (1.000-1.030) 08/16/24 13:10 Urine Protein Negative (NEGATIVE) 08/16/24 13:10 Urine Glucose (UA) Negative (NEGATIVE) 08/16/24 13:10 Urine Ketones Negative (NEGATIVE) 08/16/24 13:10 Urine Blood 3+ (NEGATIVE) 08/16/24 13:10 Urine Nitrite Negative (NEGATIVE) 08/16/24 13:10 Urine Bilirubin Negative (NEGATIVE) 08/16/24 13:10 Urine Urobilinogen Normal (NORMAL) 08/16/24 13:10 Ur Leukocyte Esterase Negative (NEGATIVE) 08/16/24 13:10 Urine RBC 3-5 /HPF (0-3) A 08/16/24 13:10 Urine WBC 0-2 /HPF (0-5) 08/16/24 13:10 Ur Squamous Epith Cells Rare /HPF (NEGATIVE) 08/16/24 13:10 Urine Bacteria Trace /HPF (NEGATIVE) 08/16/24 13:10 Ur Culture Indicated? No/not indicated 08/16/24 13:10 Opioid Opioid Risk Tool Age (Omar box if 16-45): No History of Preadolescent Sexual Abuse: No Total: 0 Total Score Risk Category: Low Risk Copyright: Tom MOSES predicting aberrant behaviors Discharge Plan Diagnosis Discharge Problem: Paralytic ileus of small intestine and colon, Chronic constipation, Abdominal pain Discharge Plan Patient Disposition: 09 ADMITTED INPATIENT Condition: Stable Prescriptions: No Action pantoprazole 40 mg tablet,delayed release (DR/EC) 40 mg PO QDAY methadone 10 mg tablet 10 mg PO TID PRN oxycodone 10 mg tablet 10 mg PO TID PRN alprazolam 1 mg tablet 1 mg PO TID PRN potassium chloride 10 mEq tablet extended release 10 meq PO QDAY dicyclomine 20 mg tablet 20 mg PO QID PRN Health Concerns: Post Hospitalization: new medications and changes needed to prevent readmission or further decline. Pt educated and given instructions on all concerns. Plan of Treatment: Continue with present treatment and follow up plan. Pt is to keep follow up appointment as instructed and take medications as ordered. Orders to Discharge Patient Discharge Orders: Transfer (Routine); Ordered 08/16/24 Ordered By: Vinay Juarez Follow ups/Referrals Follow ups/Referrals: Elvis Prince [Primary Care Provider] - 3 days Instructions Stand Alone Forms: Find Help Web Site, Post Hospital Follow Up Care
--- NOTE | 2024-08-16 14:15 | EKG ---
Test Reason : chest pain Blood Pressure : */* mmHG Vent. Rate : 53 BPM Atrial Rate : 53 BPM P-R Int : 160 ms QRS Dur : 80 ms QT Int : 510 ms P-R-T Axes : 46 3 32 degrees QTc Int : 478 ms Sinus bradycardia Possible Anterior infarct , age undetermined Abnormal ECG No previous ECGs available Confirmed by Kendall Johnson MD ([id number]) on 08/16/2024 6:23:47 PM Referred By: Confirmed By: Kendall Johnson MD
[2024-08-16 14:35] LABS: EOSINOPHILS # (AUTO) 0.2 x10^3/uL (0.0-0.2); EOSINOPHILS % (AUTO) 4.9 % (0.9-2.9); HEMATOCRIT 35.5 % (36.0-47.0); HEMOGLOBIN 11.7 g/dL (12.0-16.0); LYMPHOCYTES # (AUTO) 1.2 X10^3/uL (1.3-2.9); LYMPHOCYTES % (AUTO) 35.1 % (21.0-51.0); MEAN CORPUSCULAR HEMOGLOBIN 29.2 pg (27.0-34.0); MEAN CORPUSCULAR VOLUME 88.5 fL (80.0-100.0); MEAN PLATELET VOLUME 7.6 fL (7.4-11.0); MONOCYTES # (AUTO) 0.4 x10^3/uL (0.3-0.8); MONOCYTES % (AUTO) 12.6 % (0.0-13.0); NEUTROPHILS # (AUTO) 1.6 x10^3/uL (2.2-4.8); NEUTROPHILS % (AUTO) 46.4 % (42.0-75.0); PLATELET COUNT 217 X10^3/uL (150.0-450.0); RED BLOOD COUNT 4.02 X10^6/uL (3.5-5.4); RED CELL DISTRIBUTION WIDTH 14.7 % (11.6-16.5); WHITE BLOOD COUNT 3.4 X10^3/uL (3.6-10.0)
--- NOTE | 2024-08-16 14:48 | CT ---
EXAM:ABDOMEN/PELVIS W/O CONHISTORY:abd pain, constipation;COMPARISON:07/24/2024.TECHNIQUE: Nonenhanced spiral CT imaging was performed through the abdomen and pelvis and axial, coronal, and sagittal CT images were generated.FINDINGS:There is bronchial wall thickening in the lung bases and bibasilar opacity which could be atelectasis or scarring. There is no pleural effusion or pneumothorax. The heart size is normal. There is fluid in the distal esophagus the liver is normal. The gallbladder has been removed. Pancreas is somewhat atrophic. The spleen and adrenal glands are normal. Both kidneys are normal in size without mass, stone, or hydronephrosis. The urinary bladder is normal. The stomach is normal. The small bowel loops are not abnormally dilated. There are air-fluid levels in the large bowel in the loops are somewhat distended with air-fluid levels. No obstructing colonic mass is identified. There is [id number] systemic atherosclerosis.IMPRESSION:1. The colon is distended with air-fluid levels. Question colonic ileus.2. Fluid in the esophagus suggesting reflux.3. Bronchial wall thickening and non-specific peripheral pulmonary opacity which could be atelectasis or scarring.THIS IS AN ELECTRONICALLY VERIFIED FINAL REPORT08/16/2024 2:36 PM - Electronically signed by Juan F Zimmerman MD
[2024-08-16 14:56] LABS: ALANINE AMINOTRANSFERASE 11 Units/L (12-78); ALBUMIN 3.3 g/dL (3.4-5.0); ALKALINE PHOSPHATASE 104 Units/L (46-116); AMYLASE 48 Units/L (25-115); ASPARTATE AMINO TRANSFERASE 26 Units/L (15-37); BLOOD UREA NITROGEN 7 mg/dL (7-18); CALCIUM 8.4 mg/dL (8.5-10.1); CARBON DIOXIDE 34.7 mmol/L (21-32); CHLORIDE 103 mmol/L (98-107); CREATININE 0.73 mg/dL (0.55-1.02); GLUCOSE 88 mg/dL (65-99); LIPASE 15 Units/L (16-77); MAGNESIUM 2.7 mg/dL (2.0-2.9); POTASSIUM 3.5 mmol/L (3.5-5.1); SODIUM 141 mmol/L (136-145); TOTAL PROTEIN 7.4 g/dL (6.4-8.2); eGFR NON BLACK RACES > 60 (>60)
[2024-08-16] MEDS ORDERED: ZOFRAN INJ 4 MG VIAL IVP PRN (15:49)
[2024-08-16] MEDS ORDERED: TYLENOL 325 MG TAB PO PRN (15:49)
[2024-08-16 15:52] VITALS: BMI 20.1
[2024-08-16] MEDS: NS 1,000 ML IV 1,000 ML IV SCH (16:38)
[2024-08-16] MEDS: MORPHINE SULFATE INJ 2 MG INJ IVP PRN (16:39)
[2024-08-16] MEDS ORDERED: BUTT CREAM (COMPOUND) TOP PRN (17:05)
--- NOTE | 2024-08-17 05:29 | RAD ---
EXAM:CHEST, 1 VIEWHISTORY:Chest Pain;COMPARISON:NoneFINDINGS:The cardiomediastinal silhouette is normal in size.Chronic appearing interstitial changes in the lungs. No acute airspace disease. No pneumothorax or effusion.No acute osseous abnormality. Posterior spinal fusion hardware.IMPRESSION:No acute cardiopulmonary disease.THIS IS AN ELECTRONICALLY VERIFIED FINAL REPORT08/17/2024 5:26 AM - Electronically signed by Ki Bucio MD
[2024-08-17 06:28] LABS: BASOPHILS % (AUTO) 0.6 % (0.2-1.0); EOSINOPHILS # (AUTO) 0.1 x10^3/uL (0.0-0.2); EOSINOPHILS % (AUTO) 5.5 % (0.9-2.9); HEMATOCRIT 34.6 % (36.0-47.0); HEMOGLOBIN 11.6 g/dL (12.0-16.0); LYMPHOCYTES % (AUTO) 38.1 % (21.0-51.0); MEAN CORPUSCULAR HEMOGLOBIN 29.6 pg (27.0-34.0); MEAN CORPUSCULAR HGB CONC 33.6 g/dL (33.0-35.0); MEAN CORPUSCULAR VOLUME 88.2 fL (80.0-100.0); MONOCYTES # (AUTO) 0.3 x10^3/uL (0.3-0.8); NEUTROPHILS # (AUTO) 1.1 x10^3/uL (2.2-4.8); NEUTROPHILS % (AUTO) 43.8 % (42.0-75.0); PLATELET COUNT 198 X10^3/uL (150.0-450.0); RED BLOOD COUNT 3.93 X10^6/uL (3.5-5.4); RED CELL DISTRIBUTION WIDTH 14.5 % (11.6-16.5); WHITE BLOOD COUNT 2.6 X10^3/uL (3.6-10.0)
[2024-08-17 06:37] LABS: ALANINE AMINOTRANSFERASE 12 Units/L (12-78); ALBUMIN 2.8 g/dL (3.4-5.0); ALKALINE PHOSPHATASE 98 Units/L (46-116); ASPARTATE AMINO TRANSFERASE 22 Units/L (15-37); BLOOD UREA NITROGEN 5 mg/dL (7-18); CALCIUM 8.2 mg/dL (8.5-10.1); CARBON DIOXIDE 31.1 mmol/L (21-32); CHLORIDE 106 mmol/L (98-107); COR CA(FOR HYPOALB) 9.2 mg/dL (8.5-10.1); CREATININE 0.57 mg/dL (0.55-1.02); GLUCOSE 74 mg/dL (65-99); MAGNESIUM 2.5 mg/dL (2.0-2.9); POTASSIUM 3.8 mmol/L (3.5-5.1); SODIUM 142 mmol/L (136-145); TOTAL PROTEIN 6.5 g/dL (6.4-8.2); eGFR NON BLACK RACES > 60 (>60)
[2024-08-17 08:47] VITALS: BP 161/68; RESP 18
[2024-08-17] MEDS ORDERED: NORCO 5/325 MG TAB PO PRN (09:57)
[2024-08-17 14:03] VITALS: PULSE 56; TEMP 98.2; O2SAT 97
--- NOTE | 2024-08-19 17:53 | DR.SSS ---
SHORT STAY SUMMARY Admission Date Date of Admission: 08/16/24 Discharge Date Discharge Date: 08/17/24 Admission Diagnoses Admission Diagnoses: 1. Recurrent episodes of large bowel obstruction. 2. History of pneumatosis intestinalis. 3. Previous history of bowel obstruction. Discharge Diagnoses Discharge Diagnoses: 1. Recurrent episodes of large bowel obstruction. 2. History of pneumatosis intestinalis. 3. Previous history of bowel obstruction. Chief Complaint Chief Complaint: abdominal pain History of Present Illness History of Present Illness: Patient is a 74-year-old female that is a patient of Dr. Tyrell victor. She is well-known to him. She was scheduled for an elective laparotomy and possible bowel resection. She is known to have partial bowel obstruction. She was admitted to the hospital for that. Findings were pneumatosis intestinalis involving the right colon and hepatic flexure. Patient does have persistent abdominal distention involving the right side of the colon. She does have chronic constipation. She has had trials of numerous medications and has failed. Labs/imaging: WBC 2.6, hemoglobin 11.6, platelets 198, sodium 142, potassium 3.8, creatinine 0.57, glucose 74, UA negative, CT abdomen pelvis was obtained see results. General surgery was consulted. Recommend at this time conservative treatment. She is otherwise stable for discharge and will discuss with surgery surgical options as scheduled from before. Patient discharged in stable condition to follow-up with general surgery outpatient. Past Medical History Past Medical History: Anxiety, Arthritis and GERD Past Surgical History Surgical History: Hysterectomy and Tonsillectomy Allergies Allergies Allergy/AdvReac Type Severity Reaction Status Date / Time Sulfa (Sulfonamide Allergy Verified 08/16/24 13:15 Antibiotics) [SULFA] Medications Home Medications: Sulfa (Sulfonamide Antibiotics) [SULFA] Allergy (Verified 08/16/24 13:15) CONTINUE taking the following medications alprazolam 1 mg tablet 1 mg PO TID PRN 08/16/24 [History] dicyclomine 20 mg tablet 20 mg PO QID PRN 08/16/24 [History] potassium chloride 10 mEq tablet,extended release 10 meq PO QDAY 08/16/24 [History] Family History Family Medical History: Cancer, NH and Coronary Artery Disease Social History Does patient currently use any type of tobacco product: No Have you used tobacco products in the last 12 months: No Type of Tobacco Use: None Does any household member use tobacco: No Alcohol Use: None Review of Systems Constitutional: No Symptoms Reported Eyes: No Symptoms Reported ENT: No Symptoms Reported Respiratory: No Symptoms Reported Cardiovascular: No Symptoms Reported Gastrointestinal: Abdominal Pain and Constipation Genitourinary: No Symptoms Reported Musculoskeletal: No Symptoms Reported Skin: No Symptoms Reported Neurological: No Symptoms Reported Physical Exam Vital Signs: Last Vital Signs Temp 98.2 F 08/17/24 12:00 Pulse 56 L 08/17/24 12:00 Resp 18 08/17/24 12:00 BP 161/68 08/17/24 12:00 Pulse Ox 97 08/17/24 12:00 O2 Del Method Room Air 08/17/24 12:00 FiO2 21 07/04/24 09:33 Oriented: Normal Eyes: Normal Ear: Normal Nose: Normal Throat: Normal Respiratory: Clear Throughout Cardiovascular: Normal : Normal Auscultation: Bowel Sounds: Normal Palpation: Normal Tenderness: Diffuse and Mild Skin: Normal Musculoskeletal: Normal Mood Description: Calm Affect: Normal Speech Pattern: Clear Labs Labs: Laboratory Last Values WBC 2.6 X10^3/uL (3.6-10.0) L 08/17/24 05:15 RBC 3.93 X10^6/uL (3.5-5.4) 08/17/24 05:15 Hgb 11.6 g/dL (12.0-16.0) L 08/17/24 05:15 Hct 34.6 % (36.0-47.0) L 08/17/24 05:15 MCV 88.2 fL (80.0-100.0) 08/17/24 05:15 MCH 29.6 pg (27.0-34.0) 08/17/24 05:15 MCHC 33.6 g/dL (33.0-35.0) 08/17/24 05:15 RDW 14.5 % (11.6-16.5) 08/17/24 05:15 Plt Count 198 X10^3/uL (150.0-450.0) 08/17/24 05:15 MPV 8.0 fL (7.4-11.0) 08/17/24 05:15 Neut % (Auto) 43.8 % (42.0-75.0) 08/17/24 05:15 Lymph % (Auto) 38.1 % (21.0-51.0) 08/17/24 05:15 [place] % (Auto) 12.0 % (0.0-13.0) 08/17/24 05:15 Eos % (Auto) 5.5 % (0.9-2.9) H 08/17/24 05:15 Baso % (Auto) 0.6 % (0.2-1.0) 08/17/24 05:15 Neut # (Auto) 1.1 x10^3/uL (2.2-4.8) L 08/17/24 05:15 Lymph # (Auto) 1.0 X10^3/uL (1.3-2.9) L 08/17/24 05:15 [place] # (Auto) 0.3 x10^3/uL (0.3-0.8) 08/17/24 05:15 Eos # (Auto) 0.1 x10^3/uL (0.0-0.2) 08/17/24 05:15 Baso # (Auto) 0.0 X10^3/uL (0.0-0.1) 08/17/24 05:15 Absolute Nucleated RBC 0.5 /100WBC 08/17/24 05:15 Sodium 142 mmol/L (136-145) 08/17/24 05:15 Corrected Sodium TNP 08/17/24 05:15 Potassium 3.8 mmol/L (3.5-5.1) 08/17/24 05:15 Chloride 106 mmol/L (98-107) 08/17/24 05:15 Carbon Dioxide 31.1 mmol/L (21-32) 08/17/24 05:15 BUN 5 mg/dL (7-18) L 08/17/24 05:15 Creatinine 0.57 mg/dL (0.55-1.02) 08/17/24 05:15 Est GFR (MDRD) Af Amer > 60 (>60) 08/17/24 05:15 Est GFR (MDRD) Non-Af > 60 (>60) 08/17/24 05:15 Glucose 74 mg/dL (65-99) 08/17/24 05:15 Calcium 8.2 mg/dL (8.5-10.1) L 08/17/24 05:15 Corrected Calcium 9.2 mg/dL (8.5-10.1) 08/17/24 05:15 Magnesium 2.5 mg/dL (2.0-2.9) 08/17/24 05:15 Total Bilirubin 0.30 mg/dL (0.2-1.0) 08/17/24 05:15 AST 22 Units/L (15-37) 08/17/24 05:15 ALT 12 Units/L (12-78) 08/17/24 05:15 Alkaline Phosphatase 98 Units/L (46-116) 08/17/24 05:15 Troponin I High Sens 6.0 ng/L (4.0-60.0) 08/16/24 15:19 Total Protein 6.5 g/dL (6.4-8.2) 08/17/24 05:15 Albumin 2.8 g/dL (3.4-5.0) L 08/17/24 05:15 Globulin 3.7 g/dL (2.5-4.5) 08/17/24 05:15 Albumin/Globulin Ratio 0.8 Ratio (1.1-2.1) L 08/17/24 05:15 Amylase 48 Units/L (25-115) 08/16/24 14:14 Lipase 15 Units/L (16-77) L 08/16/24 14:14 Specimen Type Clean catch urine 08/16/24 13:10 Urine Color Yellow (YELLOW) 08/16/24 13:10 Urine Appearance Clear (CLEAR) 08/16/24 13:10 Urine pH 8.0 (5.0 - 8.0) 08/16/24 13:10 Ur Specific [place] 1.020 (1.000-1.030) 08/16/24 13:10 Urine Protein Negative (NEGATIVE) 08/16/24 13:10 Urine Glucose (UA) Negative (NEGATIVE) 08/16/24 13:10 Urine Ketones Negative (NEGATIVE) 08/16/24 13:10 Urine Blood 3+ (NEGATIVE) 08/16/24 13:10 Urine Nitrite Negative (NEGATIVE) 08/16/24 13:10 Urine Bilirubin Negative (NEGATIVE) 08/16/24 13:10 Urine Urobilinogen Normal (NORMAL) 08/16/24 13:10 Ur Leukocyte Esterase Negative (NEGATIVE) 08/16/24 13:10 Urine RBC 3-5 /HPF (0-3) A 08/16/24 13:10 Urine WBC 0-2 /HPF (0-5) 08/16/24 13:10 Ur Squamous Epith Cells Rare /HPF (NEGATIVE) 08/16/24 13:10 Urine Bacteria Trace /HPF (NEGATIVE) 08/16/24 13:10 Ur Culture Indicated? No/not indicated 08/16/24 13:10 Assessment/Plan (1) Paralytic ileus of small intestine and colon: (2) Abdominal pain: (3) Recurrent intestinal obstruction: Hospital Course Hospital Course: Patient is a 74-year-old female that is a patient of [facility]. She is well-known to him. She was scheduled for an elective laparotomy and possible bowel resection. She is known to have partial bowel obstruction. She was admitted to the hospital for that. Findings were pneumatosis intestinalis involving the right colon and hepatic flexure. Patient does have persistent abdominal distention involving the right side of the colon. She does have chronic constipation. She has had trials of numerous medications and has failed. Labs/imaging: WBC 2.6, hemoglobin 11.6, platelets 198, sodium 142, potassium 3.8, creatinine 0.57, glucose 74, UA negative, CT abdomen pelvis was obtained see results. General surgery was consulted. Recommend at this time conservative treatment. She is otherwise stable for discharge and will discuss with surgery surgical options as scheduled from before. Patient discharged in stable condition to follow-up with general surgery outpatient. Discharge Medications Discharge Medications: Home Medication List alprazolam 1 mg tablet 1 mg PO TID PRN 08/16/24 [History] dicyclomine 20 mg tablet 20 mg PO QID PRN 08/16/24 [History] potassium chloride 10 mEq tablet,extended release 10 meq PO QDAY 08/16/24 [History] Prescriptions: Discharge Plan Discharge Plan Patient Disposition: HOME, SELF-CARE Condition: Stable Health Concerns: Post Hospitalization: new medications and changes needed to prevent readmission or further decline. Pt educated and given instructions on all concerns. Plan of Treatment: Continue with present treatment and follow up plan. Pt is to keep follow up appointment as instructed and take medications as ordered. Prescriptions: Continued pantoprazole 40 mg tablet,delayed release (DR/EC) 40 mg PO QDAY methadone 10 mg tablet 10 mg PO TID PRN oxycodone 10 mg tablet 10 mg PO TID PRN alprazolam 1 mg tablet 1 mg PO TID PRN potassium chloride 10 mEq tablet extended release 10 meq PO QDAY dicyclomine 20 mg tablet 20 mg PO QID PRN Orders to Discharge Patient Discharge Orders: Discharge (Routine); Ordered 08/17/24 Ordered By: Yvan Nugent Follow ups/Referrals Follow ups/Referrals: DAVID SORTO [STAFF PHYSICIAN] - (If you dont hear from 's office call back on Tuesday.) Elvis Prince [Primary Care Provider] - 3 days Instructions Instructions: Food Choices for Gastroesophageal Reflux Disease, Adult, Ileus, Chronic Constipation, Echocardiogram Stand Alone Forms: Excuse From Work or School, Find Help Web Site, Post Hospital Follow Up Care
== END 2024-08-17 15:05 | disposition home or self-care (01) ==
LOC: MED/SURG 12:51 → ER 12:51 → MED/SURG 15:40
PROVIDERS: ADMIT Family Medicine; ATTEND Family Medicine
DX: R07.89 Other chest pain; R06.89 Other abnormalities of breathing; R00.0 Tachycardia, unspecified; R10.84 Generalized abdominal pain; K59.09 Other constipation; Z01.810 Encounter for preprocedural cardiovascular examination; K21.9 Gastro-esophageal reflux disease without esophagitis; K63.89 Other specified diseases of intestine; R94.31 Abnormal electrocardiogram [ECG] [EKG]; F41.8 Other specified anxiety disorders; K56.690 Other partial intestinal obstruction

== ENCOUNTER 2024-08-28 09:50 | Inpatient (IN) ==
[2024-08-28] MEDS ORDERED: ULTANE GAS IN ONE (12:31)
[2024-08-28] MEDS ORDERED: KETAMINE HCL ONE (12:31)
[2024-08-28] MEDS ORDERED: ANCEF VIAL 1 GRAM IVP SCH (14:00)
[2024-08-28 14:14] LABS: BASOPHILS % (AUTO) 1.2 % (0.2-1.0); EOSINOPHILS # (AUTO) 0.1 x10^3/uL (0.0-0.2); EOSINOPHILS % (AUTO) 3.7 % (0.9-2.9); HEMATOCRIT 36.2 % (36.0-47.0); HEMOGLOBIN 12.3 g/dL (12.0-16.0); LYMPHOCYTES # (AUTO) 1.5 X10^3/uL (1.3-2.9); LYMPHOCYTES % (AUTO) 37.4 % (21.0-51.0); MEAN CORPUSCULAR HEMOGLOBIN 29.7 pg (27.0-34.0); MEAN CORPUSCULAR HGB CONC 33.9 g/dL (33.0-35.0); MEAN CORPUSCULAR VOLUME 87.5 fL (80.0-100.0); MEAN PLATELET VOLUME 7.4 fL (7.4-11.0); MONOCYTES # (AUTO) 0.4 x10^3/uL (0.3-0.8); MONOCYTES % (AUTO) 9.8 % (0.0-13.0); NEUTROPHILS # (AUTO) 1.9 x10^3/uL (2.2-4.8); NEUTROPHILS % (AUTO) 47.9 % (42.0-75.0); PLATELET COUNT 253 X10^3/uL (150.0-450.0); RED BLOOD COUNT 4.14 X10^6/uL (3.5-5.4); RED CELL DISTRIBUTION WIDTH 14.4 % (11.6-16.5)
--- NOTE | 2024-08-28 14:24 | EKG ---
Test Reason : preop Blood Pressure : */* mmHG Vent. Rate : 58 BPM Atrial Rate : 58 BPM P-R Int : 158 ms QRS Dur : 74 ms QT Int : 472 ms P-R-T Axes : 54 5 60 degrees QTc Int : 463 ms Sinus bradycardia Otherwise normal ECG When compared with ECG of 16-AUG-2024 13:39, No significant change was found Confirmed by Kendall Johnson MD ([id number]) on 08/29/2024 7:28:33 AM Referred By: Confirmed By: Kendall Johnson MD
[2024-08-28 14:29] LABS: ALANINE AMINOTRANSFERASE 13 Units/L (12-78); ALBUMIN 3.4 g/dL (3.4-5.0); ALKALINE PHOSPHATASE 107 Units/L (46-116); ASPARTATE AMINO TRANSFERASE 24 Units/L (15-37); BLOOD UREA NITROGEN 7 mg/dL (7-18); CALCIUM 8.5 mg/dL (8.5-10.1); CARBON DIOXIDE 33.9 mmol/L (21-32); CHLORIDE 97 mmol/L (98-107); CREATININE 0.75 mg/dL (0.55-1.02); GLUCOSE 98 mg/dL (65-99); POTASSIUM 3.9 mmol/L (3.5-5.1); SODIUM 134 mmol/L (136-145); TOTAL PROTEIN 7.7 g/dL (6.4-8.2); eGFR NON BLACK RACES > 60 (>60)
[2024-08-28] MEDS: D5 1/2 NS 1,000 ML 1,000 ML IV SCH (14:47)
[2024-08-28] MEDS: ANCEF VIAL 1 GRAM 1 G in NS 100 ML IV 100 ML IV SCH (14:47)
[2024-08-28] MEDS: SUPREP BOWEL PREP KIT PO SCH (14:48)
--- NOTE | 2024-08-28 16:34 | RAD ---
EXAM:CHEST, PA/LAT ADULTHISTORY:PRE OP BOWEL OBSTRUCTION ;COMPARISON:CT dated 08/16/2024 and chest x-ray dated 08/16/2024TECHNIQUE:PA and lateralFINDINGS:Stable cardiac silhouette. No focal consolidation, pleural effusion, or pneumothorax. Thoracolumbar fusion hardware in place with chronic lower thoracic compression fracture and dorsal spinal stimulator leads. Prominent air-filled colon in the upper abdomen projects under the right hemidiaphragm.IMPRESSION:No acute cardiopulmonary findings.THIS IS AN ELECTRONICALLY VERIFIED FINAL REPORT08/28/2024 4:31 PM - Electronically signed by Chris Arechiga MD
[2024-08-28] MEDS: NORCO 5/325 MG TAB ONE (17:25)
[2024-08-28] MEDS: MORPHINE SULFATE INJ 2 MG INJ IVP PRN (17:36)
[2024-08-28 18:48] VITALS: BMI 18.8
[2024-08-29 06:18] LABS: BASOPHILS % (AUTO) 0.6 % (0.2-1.0); EOSINOPHILS # (AUTO) 0.2 x10^3/uL (0.0-0.2); EOSINOPHILS % (AUTO) 4.2 % (0.9-2.9); HEMATOCRIT 38.1 % (36.0-47.0); HEMOGLOBIN 12.8 g/dL (12.0-16.0); LYMPHOCYTES # (AUTO) 1.3 X10^3/uL (1.3-2.9); LYMPHOCYTES % (AUTO) 32.4 % (21.0-51.0); MEAN CORPUSCULAR HEMOGLOBIN 29.5 pg (27.0-34.0); MEAN CORPUSCULAR HGB CONC 33.6 g/dL (33.0-35.0); MEAN CORPUSCULAR VOLUME 87.8 fL (80.0-100.0); MEAN PLATELET VOLUME 7.4 fL (7.4-11.0); MONOCYTES # (AUTO) 0.5 x10^3/uL (0.3-0.8); MONOCYTES % (AUTO) 11.7 % (0.0-13.0); NEUTROPHILS # (AUTO) 2.1 x10^3/uL (2.2-4.8); NEUTROPHILS % (AUTO) 51.1 % (42.0-75.0); PLATELET COUNT 258 X10^3/uL (150.0-450.0); RED BLOOD COUNT 4.34 X10^6/uL (3.5-5.4); RED CELL DISTRIBUTION WIDTH 14.2 % (11.6-16.5); WHITE BLOOD COUNT 4.1 X10^3/uL (3.6-10.0)
[2024-08-29 06:24] LABS: ALANINE AMINOTRANSFERASE 12 Units/L (12-78); ALBUMIN 3.4 g/dL (3.4-5.0); ALKALINE PHOSPHATASE 112 Units/L (46-116); ASPARTATE AMINO TRANSFERASE 23 Units/L (15-37); BLOOD UREA NITROGEN 5 mg/dL (7-18); CALCIUM 8.4 mg/dL (8.5-10.1); CARBON DIOXIDE 36.9 mmol/L (21-32); CHLORIDE 101 mmol/L (98-107); CREATININE 0.71 mg/dL (0.55-1.02); GLUCOSE 85 mg/dL (65-99); POTASSIUM 3.4 mmol/L (3.5-5.1); SODIUM 140 mmol/L (136-145); TOTAL PROTEIN 7.7 g/dL (6.4-8.2); eGFR NON BLACK RACES > 60 (>60)
[2024-08-29] MEDS: K-DUR TAB 20 MEQ PO SCH (08:18)
[2024-08-29] MEDS ORDERED: ZOFRAN INJ 4 MG VIAL IVP PRN (10:13)
[2024-08-29] MEDS ORDERED: BARHEMSYS INJ IVP PRN (10:13)
[2024-08-29] MEDS ORDERED: BENADRYL INJ 50 MG VIAL IVP PRN (10:13)
[2024-08-29] MEDS: NORCO 5/325 MG TAB PO PRN (10:24)
[2024-08-29] MEDS ORDERED: CONSULT PHARMACY - POTASSIUM & MAGNESIUM XX SCH (12:00)
[2024-08-29] MEDS: VERSED ONE (12:06)
[2024-08-29] MEDS: FENTANYL VIAL INJ 100 mcg ONE (12:06)
[2024-08-29] MEDS: BRIDION ONE (12:09)
[2024-08-29] MEDS: PRECEDEX INJ VIAL ONE (12:09)
[2024-08-29] MEDS: DIPRIVAN VIAL 20 ML ONE (12:09)
[2024-08-29] MEDS: XYLOCAINE 2 % (PLAIN) ONE (12:11)
[2024-08-29] MEDS: ZEMURON 100 MG VIAL ONE (12:12)
[2024-08-29] MEDS: ZOFRAN INJ 4 MG VIAL ONE (12:15)
[2024-08-29] MEDS: PEPCID 20 MG VIAL ONE (12:15)
[2024-08-29] MEDS: REGLAN INJ 10 MG VIAL ONE (12:15)
[2024-08-29] MEDS: VERSED IVP PRN (13:20)
[2024-08-29] MEDS: LR 1,000 ML IV 900 ML IV PRN (13:20)
[2024-08-29] MEDS: ANCEF VIAL 1 GRAM IV PRN (13:21)
[2024-08-29] MEDS: LR 1,000 ML IV 1,000 ML IV ONE (13:21)
[2024-08-29] MEDS: ZOFRAN INJ 4 MG VIAL IVP PRN (13:22)
[2024-08-29] MEDS: PEPCID 20 MG VIAL IVP PRN (13:24)
[2024-08-29] MEDS: NS 100 ML IV 100 ML ONE (13:25)
[2024-08-29] MEDS: ANCEF VIAL 1 GRAM ONE (13:25)
[2024-08-29] MEDS: HESPAN IV IN NS 500 ML IV ONE (13:26)
[2024-08-29] MEDS: REGLAN INJ 10 MG VIAL IVP PRN (13:26)
[2024-08-29] MEDS: FENTANYL VIAL INJ 100 mcg IVP PRN (13:29)
[2024-08-29] MEDS: EPHEDRINE SULFATE INJ ONE (13:34)
[2024-08-29] MEDS: NEO-SYNEPHRINE INJ ONE (13:36)
[2024-08-29] MEDS: KETAMINE HCL IV PRN (13:43)
[2024-08-29] MEDS: POLYMYXIN B SULFATE ONE (13:55)
[2024-08-29] MEDS: DECADRON INJ IVP PRN (14:00)
[2024-08-29] MEDS: EPHEDRINE SULFATE INJ IVP PRN (14:16)
[2024-08-29] MEDS: NEO-SYNEPHRINE INJ IVP PRN (14:26)
[2024-08-29] MEDS: ZEMURON 100 MG VIAL IVP PRN (14:28)
[2024-08-29] MEDS: DILAUDID INJ ONE ×2 (14:35→16:25)
[2024-08-29] MEDS: OFIRMEV IV 1000 MG VIAL 1,000 MG/100 ML VIAL IV PRN (14:50)
[2024-08-29] MEDS: PRECEDEX INJ VIAL IVP PRN (14:51)
[2024-08-29] MEDS: DILAUDID INJ IVP PRN ×2 (15:14→16:25)
[2024-08-29] MEDS ORDERED: XYLOCAINE 2 % (PLAIN) PRN (15:20)
[2024-08-29] MEDS: DIPRIVAN VIAL 160 ML IVP PRN (15:22)
[2024-08-29] MEDS: BRIDION IVP PRN (15:29)
[2024-08-29] MEDS: BACTROBAN TOPICAL OINT ONE (15:40)
[2024-08-30] MEDS: ANCEF VIAL 1 GRAM IV SCH (07:58)
[2024-08-30] MEDS: LOVENOX INJ 40 MG SYR SC SCH (08:58)
[2024-08-30 09:06] LABS: BASOPHILS # (AUTO) 0.1 X10^3/uL (0.0-0.1); BASOPHILS % (AUTO) 0.7 % (0.2-1.0); HEMATOCRIT 33.7 % (36.0-47.0); HEMOGLOBIN 11.2 g/dL (12.0-16.0); LYMPHOCYTES # (AUTO) 0.8 X10^3/uL (1.3-2.9); MEAN CORPUSCULAR HEMOGLOBIN 29.2 pg (27.0-34.0); MEAN CORPUSCULAR HGB CONC 33.3 g/dL (33.0-35.0); MEAN CORPUSCULAR VOLUME 87.8 fL (80.0-100.0); MEAN PLATELET VOLUME 7.5 fL (7.4-11.0); MONOCYTES # (AUTO) 0.8 x10^3/uL (0.3-0.8); MONOCYTES % (AUTO) 6.3 % (0.0-13.0); NEUTROPHILS # (AUTO) 11.3 x10^3/uL (2.2-4.8); PLATELET COUNT 219 X10^3/uL (150.0-450.0); RED BLOOD COUNT 3.84 X10^6/uL (3.5-5.4); RED CELL DISTRIBUTION WIDTH 13.9 % (11.6-16.5)
[2024-08-30 09:22] LABS: ALANINE AMINOTRANSFERASE 9 Units/L (12-78); ALBUMIN 2.4 g/dL (3.4-5.0); ALKALINE PHOSPHATASE 80 Units/L (46-116); ASPARTATE AMINO TRANSFERASE 19 Units/L (15-37); BLOOD UREA NITROGEN 5 mg/dL (7-18); CALCIUM 8.1 mg/dL (8.5-10.1); CHLORIDE 102 mmol/L (98-107); COR CA(FOR HYPOALB) 9.4 mg/dL (8.5-10.1); COR NA(FOR HYPERGLY) 140 mmol/L (136-145); CREATININE 0.68 mg/dL (0.55-1.02); GLUCOSE 145 mg/dL (65-99); POTASSIUM 3.9 mmol/L (3.5-5.1); SODIUM 139 mmol/L (136-145); TOTAL PROTEIN 5.8 g/dL (6.4-8.2); eGFR NON BLACK RACES > 60 (>60)
[2024-08-30] MEDS: ATIVAN INJ 2 MG VIAL IVP PRN (09:35)
[2024-08-30] MEDS: MORPHINE SULFATE INJ 2 MG INJ IVP PRN (12:15)
--- NOTE | 2024-08-30 13:02 | DR.PROGNOT ---
HOSPITAL PROGRESS NOTE Progress Note for Day of: Progress Note Date: 08/30/24 Chief Complaint Chief Complaint: Patient's postoperative right colectomy day 1. She seemed to be comfortable, complaining of incisional pain. Good urine output. WBC 13, electrolytes are normal, BUN/creatinine are normal. Afebrile, clear lung, abdomen is soft with hypoactive bowel sounds. Past Medical Family Social History Allergies: Allergies Sulfa (Sulfonamide Antibiotics) [SULFA] Allergy (Verified 08/28/24 16:27) Vital Signs Vital Signs: Vital Signs Respiratory Rate 18 Respiratory Rate 19 Physical Exam Oriented: Normal Eyes: Normal Ear: Normal Nose: Normal Throat: Normal Respiratory: Normal Cardiovascular: Normal : Other (Has Frankel catheter) GI:Auscultation: Decreased GI: Tenderness: Diffuse Mood Description: Calm and Appropriate Speech Pattern: Clear Laboratory and Diagnostics 08/30/24 08:56 08/30/24 08:56 Labs: Laboratory WBC 13.0 X10^3/uL (3.6-10.0) H D 08/30/24 08:56 RBC 3.84 X10^6/uL (3.5-5.4) 08/30/24 08:56 Hgb 11.2 g/dL (12.0-16.0) L 08/30/24 08:56 Hct 33.7 % (36.0-47.0) L 08/30/24 08:56 MCV 87.8 fL (80.0-100.0) 08/30/24 08:56 MCH 29.2 pg (27.0-34.0) 08/30/24 08:56 MCHC 33.3 g/dL (33.0-35.0) 08/30/24 08:56 RDW 13.9 % (11.6-16.5) 08/30/24 08:56 Plt Count 219 X10^3/uL (150.0-450.0) 08/30/24 08:56 MPV 7.5 fL (7.4-11.0) 08/30/24 08:56 Neut % (Auto) 87.0 % (42.0-75.0) H 08/30/24 08:56 Lymph % (Auto) 6.0 % (21.0-51.0) L 08/30/24 08:56 [place] % (Auto) 6.3 % (0.0-13.0) 08/30/24 08:56 Eos % (Auto) 0.0 % (0.9-2.9) L 08/30/24 08:56 Baso % (Auto) 0.7 % (0.2-1.0) 08/30/24 08:56 Neut # (Auto) 11.3 x10^3/uL (2.2-4.8) H 08/30/24 08:56 Lymph # (Auto) 0.8 X10^3/uL (1.3-2.9) L 08/30/24 08:56 [place] # (Auto) 0.8 x10^3/uL (0.3-0.8) 08/30/24 08:56 Eos # (Auto) 0.0 x10^3/uL (0.0-0.2) 08/30/24 08:56 Baso # (Auto) 0.1 X10^3/uL (0.0-0.1) 08/30/24 08:56 Absolute Nucleated RBC 0.0 /100WBC 08/30/24 08:56 Sodium 139 mmol/L (136-145) 08/30/24 08:56 Corrected Sodium 140 mmol/L (136-145) 08/30/24 08:56 Potassium 3.9 mmol/L (3.5-5.1) 08/30/24 08:56 Chloride 102 mmol/L (98-107) 08/30/24 08:56 Carbon Dioxide 32.0 mmol/L (21-32) 08/30/24 08:56 BUN 5 mg/dL (7-18) L 08/30/24 08:56 Creatinine 0.68 mg/dL (0.55-1.02) 08/30/24 08:56 Est GFR (MDRD) Af Amer > 60 (>60) 08/30/24 08:56 Est GFR (MDRD) Non-Af > 60 (>60) 08/30/24 08:56 Glucose 145 mg/dL (65-99) H 08/30/24 08:56 Calcium 8.1 mg/dL (8.5-10.1) L 08/30/24 08:56 Corrected Calcium 9.4 mg/dL (8.5-10.1) 08/30/24 08:56 Magnesium 2.4 mg/dL (2.0-2.9) 08/29/24 05:26 Total Bilirubin 0.40 mg/dL (0.2-1.0) 08/30/24 08:56 AST 19 Units/L (15-37) 08/30/24 08:56 ALT 9 Units/L (12-78) L 08/30/24 08:56 Alkaline Phosphatase 80 Units/L (46-116) 08/30/24 08:56 Total Protein 5.8 g/dL (6.4-8.2) L 08/30/24 08:56 Albumin 2.4 g/dL (3.4-5.0) L 08/30/24 08:56 Globulin 3.4 g/dL (2.5-4.5) 08/30/24 08:56 Albumin/Globulin Ratio 0.7 Ratio (1.1-2.1) L 08/30/24 08:56 Assessment and Plan 1: Postoperative laparotomy, lysis of adhesions and right colectomy. Same postoperative care, DVT prophylaxis and incentive spirometer, out of bed.
[2024-08-30] MEDS: D5 1/2 NS 1,000 ML 1,000 ML IV SCH (15:06)
[2024-08-30] MEDS: PEPCID 20 MG VIAL 20 MG in NS 50 ML IV 50 ML IV SCH (15:30)
[2024-08-30] MEDS ORDERED: MAALOX or MYLANTA ONE (16:52)
[2024-08-30] MEDS ORDERED: CHLORASEPTIC SPRAY MT ONE (16:52)
[2024-08-30] MEDS: MAALOX or MYLANTA PO PRN (17:00)
[2024-08-30] MEDS: CHLORASEPTIC SPRAY MT PRN (17:00)
[2024-08-31 07:02] LABS: BASOPHILS # (AUTO) 0.1 X10^3/uL (0.0-0.1); BASOPHILS % (AUTO) 1.1 % (0.2-1.0); EOSINOPHILS # (AUTO) 0.1 x10^3/uL (0.0-0.2); EOSINOPHILS % (AUTO) 0.7 % (0.9-2.9); HEMATOCRIT 33.6 % (36.0-47.0); HEMOGLOBIN 11.2 g/dL (12.0-16.0); LYMPHOCYTES # (AUTO) 1.2 X10^3/uL (1.3-2.9); LYMPHOCYTES % (AUTO) 8.7 % (21.0-51.0); MEAN CORPUSCULAR HEMOGLOBIN 29.3 pg (27.0-34.0); MEAN CORPUSCULAR HGB CONC 33.4 g/dL (33.0-35.0); MEAN CORPUSCULAR VOLUME 87.8 fL (80.0-100.0); MEAN PLATELET VOLUME 7.5 fL (7.4-11.0); MONOCYTES # (AUTO) 0.8 x10^3/uL (0.3-0.8); MONOCYTES % (AUTO) 5.7 % (0.0-13.0); NEUTROPHILS # (AUTO) 11.2 x10^3/uL (2.2-4.8); NEUTROPHILS % (AUTO) 83.8 % (42.0-75.0); PLATELET COUNT 230 X10^3/uL (150.0-450.0); RED BLOOD COUNT 3.82 X10^6/uL (3.5-5.4); RED CELL DISTRIBUTION WIDTH 14.3 % (11.6-16.5); WHITE BLOOD COUNT 13.3 X10^3/uL (3.6-10.0)
[2024-08-31 07:10] LABS: ALANINE AMINOTRANSFERASE 7 Units/L (12-78); ALBUMIN 2.2 g/dL (3.4-5.0); ALKALINE PHOSPHATASE 77 Units/L (46-116); ASPARTATE AMINO TRANSFERASE 21 Units/L (15-37); BLOOD UREA NITROGEN 4 mg/dL (7-18); CALCIUM 8.1 mg/dL (8.5-10.1); CARBON DIOXIDE 28.1 mmol/L (21-32); CHLORIDE 103 mmol/L (98-107); COR CA(FOR HYPOALB) 9.5 mg/dL (8.5-10.1); COR NA(FOR HYPERGLY) 139 mmol/L (136-145); CREATININE 0.55 mg/dL (0.55-1.02); GLUCOSE 131 mg/dL (65-99); POTASSIUM 3.6 mmol/L (3.5-5.1); SODIUM 138 mmol/L (136-145); TOTAL PROTEIN 5.9 g/dL (6.4-8.2); eGFR NON BLACK RACES > 60 (>60)
--- NOTE | 2024-08-31 08:32 | DR.PROGNOT ---
HOSPITAL PROGRESS NOTE Progress Note for Day of: Progress Note Date: 08/31/24 Chief Complaint Chief Complaint: Patient's postoperative right colectomy day 2. She seemed to be comfortable, complaining of incisional pain. Good urine output. WBC 13.3, electrolytes are normal, BUN/creatinine are normal. Afebrile, clear lung, abdomen is soft with hypoactive bowel sounds. Past Medical Family Social History Past Med/Fam/Surg Hx: No changes since H&P Allergies: Allergies Sulfa (Sulfonamide Antibiotics) [SULFA] Allergy (Verified 08/28/24 16:27) Review Of Systems ROS: No change since H&P Vital Signs Vital Signs: Vital Signs Temperature 98.0 F Pulse Rate [Right Brachial] 87 Respiratory Rate 19 Respiratory Rate 18 Respiratory Rate 19 Respiratory Rate 18 Respiratory Rate 18 Blood Pressure [Right Arm] 140/65 O2 Sat by Pulse Oximetry 94 Physical Exam Oriented: Normal Eyes: Normal Ear: Normal Nose: Normal Throat: Normal Respiratory: Normal Cardiovascular: Normal : Other (Has Frankel catheter) GI:Auscultation: Decreased GI: Tenderness: Diffuse Mood Description: Calm and Appropriate Speech Pattern: Clear Laboratory and Diagnostics 08/31/24 06:52 08/31/24 06:52 Labs: Laboratory WBC 13.3 X10^3/uL (3.6-10.0) H 08/31/24 06:52 RBC 3.82 X10^6/uL (3.5-5.4) 08/31/24 06:52 Hgb 11.2 g/dL (12.0-16.0) L 08/31/24 06:52 Hct 33.6 % (36.0-47.0) L 08/31/24 06:52 MCV 87.8 fL (80.0-100.0) 08/31/24 06:52 MCH 29.3 pg (27.0-34.0) 08/31/24 06:52 MCHC 33.4 g/dL (33.0-35.0) 08/31/24 06:52 RDW 14.3 % (11.6-16.5) 08/31/24 06:52 Plt Count 230 X10^3/uL (150.0-450.0) 08/31/24 06:52 MPV 7.5 fL (7.4-11.0) 08/31/24 06:52 Neut % (Auto) 83.8 % (42.0-75.0) H 08/31/24 06:52 Lymph % (Auto) 8.7 % (21.0-51.0) L 08/31/24 06:52 [place] % (Auto) 5.7 % (0.0-13.0) 08/31/24 06:52 Eos % (Auto) 0.7 % (0.9-2.9) L 08/31/24 06:52 Baso % (Auto) 1.1 % (0.2-1.0) H 08/31/24 06:52 Neut # (Auto) 11.2 x10^3/uL (2.2-4.8) H 08/31/24 06:52 Lymph # (Auto) 1.2 X10^3/uL (1.3-2.9) L 08/31/24 06:52 [place] # (Auto) 0.8 x10^3/uL (0.3-0.8) 08/31/24 06:52 Eos # (Auto) 0.1 x10^3/uL (0.0-0.2) 08/31/24 06:52 Baso # (Auto) 0.1 X10^3/uL (0.0-0.1) 08/31/24 06:52 Absolute Nucleated RBC 0.0 /100WBC 08/31/24 06:52 Sodium 138 mmol/L (136-145) 08/31/24 06:52 Corrected Sodium 139 mmol/L (136-145) 08/31/24 06:52 Potassium 3.6 mmol/L (3.5-5.1) 08/31/24 06:52 Chloride 103 mmol/L (98-107) 08/31/24 06:52 Carbon Dioxide 28.1 mmol/L (21-32) 08/31/24 06:52 BUN 4 mg/dL (7-18) L 08/31/24 06:52 Creatinine 0.55 mg/dL (0.55-1.02) 08/31/24 06:52 Est GFR (MDRD) Af Amer > 60 (>60) 08/31/24 06:52 Est GFR (MDRD) Non-Af > 60 (>60) 08/31/24 06:52 Glucose 131 mg/dL (65-99) H 08/31/24 06:52 Calcium 8.1 mg/dL (8.5-10.1) L 08/31/24 06:52 Corrected Calcium 9.5 mg/dL (8.5-10.1) 08/31/24 06:52 Magnesium 2.4 mg/dL (2.0-2.9) 08/29/24 05:26 Total Bilirubin 0.30 mg/dL (0.2-1.0) 08/31/24 06:52 AST 21 Units/L (15-37) 08/31/24 06:52 ALT 7 Units/L (12-78) L 08/31/24 06:52 Alkaline Phosphatase 77 Units/L (46-116) 08/31/24 06:52 Total Protein 5.9 g/dL (6.4-8.2) L 08/31/24 06:52 Albumin 2.2 g/dL (3.4-5.0) L 08/31/24 06:52 Globulin 3.7 g/dL (2.5-4.5) 08/31/24 06:52 Albumin/Globulin Ratio 0.6 Ratio (1.1-2.1) L 08/31/24 06:52 Assessment and Plan 1: Postoperative laparotomy, lysis of adhesions and right colectomy day 2. to D/C NGT , clear liquid , D/C Frankel , NIKITA , Same postoperative care, DVT prophylaxis and incentive spirometer, out of bed.
[2024-09-01 06:54] LABS: BASOPHILS # (AUTO) 0.1 X10^3/uL (0.0-0.1); EOSINOPHILS # (AUTO) 0.2 x10^3/uL (0.0-0.2); EOSINOPHILS % (AUTO) 2.7 % (0.9-2.9); HEMATOCRIT 25.5 % (36.0-47.0); HEMOGLOBIN 8.7 g/dL (12.0-16.0); LYMPHOCYTES # (AUTO) 0.8 X10^3/uL (1.3-2.9); LYMPHOCYTES % (AUTO) 10.1 % (21.0-51.0); MEAN CORPUSCULAR HEMOGLOBIN 30.1 pg (27.0-34.0); MEAN CORPUSCULAR HGB CONC 34.1 g/dL (33.0-35.0); MEAN CORPUSCULAR VOLUME 88.1 fL (80.0-100.0); MEAN PLATELET VOLUME 7.3 fL (7.4-11.0); MONOCYTES # (AUTO) 0.5 x10^3/uL (0.3-0.8); MONOCYTES % (AUTO) 6.3 % (0.0-13.0); NEUTROPHILS # (AUTO) 6.3 x10^3/uL (2.2-4.8); NEUTROPHILS % (AUTO) 79.9 % (42.0-75.0); PLATELET COUNT 191 X10^3/uL (150.0-450.0); RED BLOOD COUNT 2.89 X10^6/uL (3.5-5.4); WHITE BLOOD COUNT 7.9 X10^3/uL (3.6-10.0)
[2024-09-01 07:23] LABS: ALANINE AMINOTRANSFERASE 8 Units/L (12-78); ALBUMIN 1.9 g/dL (3.4-5.0); ALKALINE PHOSPHATASE 61 Units/L (46-116); ASPARTATE AMINO TRANSFERASE 16 Units/L (15-37); BLOOD UREA NITROGEN 6 mg/dL (7-18); CALCIUM 7.7 mg/dL (8.5-10.1); CARBON DIOXIDE 26.3 mmol/L (21-32); CHLORIDE 106 mmol/L (98-107); COR CA(FOR HYPOALB) 9.4 mg/dL (8.5-10.1); COR NA(FOR HYPERGLY) 140 mmol/L (136-145); CREATININE 0.46 mg/dL (0.55-1.02); GLUCOSE 116 mg/dL (65-99); MAGNESIUM 1.8 mg/dL (2.0-2.9); POTASSIUM 3.3 mmol/L (3.5-5.1); SODIUM 140 mmol/L (136-145); TOTAL PROTEIN 5.2 g/dL (6.4-8.2); eGFR NON BLACK RACES > 60 (>60)
[2024-09-01] MEDS: NS 100 ML IV 100 ML ONE ×2 (10:25→10:26)
[2024-09-01] MEDS: PERCOCET TAB 5/325 MG PO PRN (11:29)
--- NOTE | 2024-09-01 11:35 | DR.PROGNOT ---
HOSPITAL PROGRESS NOTE Progress Note for Day of: Progress Note Date: 09/01/24 Chief Complaint Chief Complaint: Patient's postoperative right colectomy day 3. She seemed to be comfortable, complaining of incisional pain. Good urine output. WBC 7.9, electrolytes are normal, BUN/creatinine are normal. Afebrile, clear lung, abdomen is soft with hypoactive bowel sounds. Past Medical Family Social History Past Med/Fam/Surg Hx: No changes since H&P Allergies: Allergies Sulfa (Sulfonamide Antibiotics) [SULFA] Allergy (Verified 08/28/24 16:27) Review Of Systems ROS: No change since H&P Vital Signs Vital Signs: Vital Signs Temperature 97.3 F Temperature 98.3 F Pulse Rate [Right Brachial] 117 Pulse Rate [Right Brachial] 83 Respiratory Rate 18 Respiratory Rate 16 Respiratory Rate 18 Respiratory Rate 16 Blood Pressure [Left Arm] 126/56 Blood Pressure [Left Arm] 101/51 O2 Sat by Pulse Oximetry 95 O2 Sat by Pulse Oximetry 96 Physical Exam Oriented: Normal Eyes: Normal Ear: Normal Nose: Normal Throat: Normal Respiratory: Normal Cardiovascular: Normal GI:Auscultation: Decreased GI:Palpation: Other (Abdomen is soft flat with mild diffuse tenderness, no rebound or rigidity, bowel sounds present.) GI: Tenderness: Diffuse Mood Description: Calm and Appropriate Speech Pattern: Clear and Appropriate Laboratory and Diagnostics 09/01/24 06:24 09/01/24 06:24 Labs: Laboratory WBC 7.9 X10^3/uL (3.6-10.0) 09/01/24 06:24 RBC 2.89 X10^6/uL (3.5-5.4) L 09/01/24 06:24 Hgb 8.7 g/dL (12.0-16.0) L D 09/01/24 06:24 Hct 25.5 % (36.0-47.0) L 09/01/24 06:24 MCV 88.1 fL (80.0-100.0) 09/01/24 06:24 MCH 30.1 pg (27.0-34.0) 09/01/24 06:24 MCHC 34.1 g/dL (33.0-35.0) 09/01/24 06:24 RDW 14.0 % (11.6-16.5) 09/01/24 06:24 Plt Count 191 X10^3/uL (150.0-450.0) 09/01/24 06:24 MPV 7.3 fL (7.4-11.0) L 09/01/24 06:24 Neut % (Auto) 79.9 % (42.0-75.0) H 09/01/24 06:24 Lymph % (Auto) 10.1 % (21.0-51.0) L 09/01/24 06:24 [place] % (Auto) 6.3 % (0.0-13.0) 09/01/24 06:24 Eos % (Auto) 2.7 % (0.9-2.9) 09/01/24 06:24 Baso % (Auto) 1.0 % (0.2-1.0) 09/01/24 06:24 Neut # (Auto) 6.3 x10^3/uL (2.2-4.8) H 09/01/24 06:24 Lymph # (Auto) 0.8 X10^3/uL (1.3-2.9) L 09/01/24 06:24 [place] # (Auto) 0.5 x10^3/uL (0.3-0.8) 09/01/24 06:24 Eos # (Auto) 0.2 x10^3/uL (0.0-0.2) 09/01/24 06:24 Baso # (Auto) 0.1 X10^3/uL (0.0-0.1) 09/01/24 06:24 Absolute Nucleated RBC 0.0 /100WBC 09/01/24 06:24 Sodium 140 mmol/L (136-145) 09/01/24 06:24 Corrected Sodium 140 mmol/L (136-145) 09/01/24 06:24 Potassium 3.3 mmol/L (3.5-5.1) L 09/01/24 06:24 Chloride 106 mmol/L (98-107) 09/01/24 06:24 Carbon Dioxide 26.3 mmol/L (21-32) 09/01/24 06:24 BUN 6 mg/dL (7-18) L 09/01/24 06:24 Creatinine 0.46 mg/dL (0.55-1.02) L 09/01/24 06:24 Est GFR (MDRD) Af Amer > 60 (>60) 09/01/24 06:24 Est GFR (MDRD) Non-Af > 60 (>60) 09/01/24 06:24 Glucose 116 mg/dL (65-99) H 09/01/24 06:24 Calcium 7.7 mg/dL (8.5-10.1) L 09/01/24 06:24 Corrected Calcium 9.4 mg/dL (8.5-10.1) 09/01/24 06:24 Magnesium 1.8 mg/dL (2.0-2.9) L 09/01/24 06:24 Total Bilirubin 0.20 mg/dL (0.2-1.0) 09/01/24 06:24 AST 16 Units/L (15-37) 09/01/24 06:24 ALT 8 Units/L (12-78) L 09/01/24 06:24 Alkaline Phosphatase 61 Units/L (46-116) 09/01/24 06:24 Total Protein 5.2 g/dL (6.4-8.2) L 09/01/24 06:24 Albumin 1.9 g/dL (3.4-5.0) L 09/01/24 06:24 Globulin 3.3 g/dL (2.5-4.5) 09/01/24 06:24 Albumin/Globulin Ratio 0.6 Ratio (1.1-2.1) L 09/01/24 06:24 Assessment and Plan 1: Postoperative laparotomy, lysis of adhesions and right colectomy day 3. Full liquid diet, OOB , Same postoperative care, DVT prophylaxis and incentive spirometer, out of bed.
[2024-09-01] MEDS: ATIVAN TAB 0.5 MG PO SCH (21:41)
[2024-09-01] MEDS: PEPCID TAB 20 MG PO SCH (21:41)
[2024-09-01] MEDS: MAG-OX TAB PO SCH (21:43)
[2024-09-01] MEDS: K-DUR TAB 20 MEQ PO SCH (21:44)
[2024-09-01] MEDS ORDERED: CONSULT PHARMACY - POTASSIUM & MAGNESIUM XX SCH (22:00)
[2024-09-02] MEDS ORDERED: ATIVAN TAB 0.5 MG PO PRN (01:48)
[2024-09-02 06:03] VITALS: O2SAT 96
[2024-09-02 06:31] LABS: BASOPHILS % (AUTO) 0.4 % (0.2-1.0); EOSINOPHILS # (AUTO) 0.3 x10^3/uL (0.0-0.2); EOSINOPHILS % (AUTO) 5.2 % (0.9-2.9); HEMATOCRIT 25.2 % (36.0-47.0); HEMOGLOBIN 8.7 g/dL (12.0-16.0); LYMPHOCYTES # (AUTO) 0.9 X10^3/uL (1.3-2.9); LYMPHOCYTES % (AUTO) 15.1 % (21.0-51.0); MEAN CORPUSCULAR HEMOGLOBIN 30.2 pg (27.0-34.0); MEAN CORPUSCULAR HGB CONC 34.7 g/dL (33.0-35.0); MEAN CORPUSCULAR VOLUME 87.1 fL (80.0-100.0); MEAN PLATELET VOLUME 7.4 fL (7.4-11.0); MONOCYTES # (AUTO) 0.6 x10^3/uL (0.3-0.8); MONOCYTES % (AUTO) 9.1 % (0.0-13.0); NEUTROPHILS # (AUTO) 4.4 x10^3/uL (2.2-4.8); NEUTROPHILS % (AUTO) 70.2 % (42.0-75.0); PLATELET COUNT 233 X10^3/uL (150.0-450.0); RED BLOOD COUNT 2.89 X10^6/uL (3.5-5.4); RED CELL DISTRIBUTION WIDTH 14.2 % (11.6-16.5); WHITE BLOOD COUNT 6.3 X10^3/uL (3.6-10.0)
[2024-09-02 06:43] LABS: ALANINE AMINOTRANSFERASE 6 Units/L (12-78); ALKALINE PHOSPHATASE 68 Units/L (46-116); ASPARTATE AMINO TRANSFERASE 16 Units/L (15-37); BLOOD UREA NITROGEN 11 mg/dL (7-18); CALCIUM 8.2 mg/dL (8.5-10.1); CARBON DIOXIDE 26.7 mmol/L (21-32); CHLORIDE 106 mmol/L (98-107); COR CA(FOR HYPOALB) 9.8 mg/dL (8.5-10.1); CREATININE 0.46 mg/dL (0.55-1.02); GLUCOSE 88 mg/dL (65-99); MAGNESIUM 2.1 mg/dL (2.0-2.9); POTASSIUM 4.2 mmol/L (3.5-5.1); SODIUM 140 mmol/L (136-145); TOTAL PROTEIN 5.5 g/dL (6.4-8.2); eGFR NON BLACK RACES > 60 (>60)
[2024-09-02 10:28] VITALS: BP 120/57; PULSE 87; RESP 18; TEMP 98.2
== END 2024-09-02 10:40 | disposition home or self-care (01) | DRG 330 ==
LOC: MED/SURG
PROVIDERS: ADMIT Surgery; ATTEND Surgery
DX: E87.1 Hypo-osmolality and hyponatremia; K56.690 Other partial intestinal obstruction; Z01.810 Encounter for preprocedural cardiovascular examination; E87.6 Hypokalemia; E83.42 Hypomagnesemia; R00.1 Bradycardia, unspecified; R10.84 Generalized abdominal pain; Z87.19 Personal history of other diseases of the digestive system; K21.9 Gastro-esophageal reflux disease without esophagitis; F41.8 Other specified anxiety disorders; K59.09 Other constipation; M19.90 Unspecified osteoarthritis, unspecified site; K63.89 Other specified diseases of intestine; K66.0 Peritoneal adhesions (postprocedural) (postinfection); R26.89 Other abnormalities of gait and mobility